=== PATIENT | female | born 1940 | race Caucasian/White ===

== ENCOUNTER 2024-08-25 07:48 | Inpatient (IN) ==
--- NOTE | 2024-08-25 08:14 | Emergency Department Note ---
ED Provider Note History of Present Illness Chief Complaint: Abdominal Pain Stated Complaint: SEVERE ABD PAIN Time Seen by Provider: 08/25/24 07:55 84-year-old female who presents to the emergency department with her (who also provides history) for evaluation of abdominal pain radiating into the back, as well as intermittent nausea and vomiting. The patient reports that the pain started yesterday afternoon. She reports that it is a constant pain with occasional sharp jabs. The patient reports that she has not had any good bowel movements within the past few weeks. She does report a history of "microcolitis". When asked if she uses any stool softeners, the patient reports that she is afraid to do so because often times she will have to deal with ongoing diarrhea. The patient has not had any fever or chills. She denies any urinary symptoms. The patient reports that she was recently diagnosed with an L1 fracture, but reports that this pain is different. She currently rates her discomfort a 9 out of 10. Home Medications Medication Instructions Recorded Confirmed Type magnesium 250 mg tablet 250 mg PO QAM 07/11/23 08/25/24 History mecobalamin (vitamin B12) 500 mcg 500 mcg PO QAM 07/11/23 08/25/24 History chewable tablet multivitamin 1 tab PO QAM 07/11/23 08/25/24 History brinzolamide 1 % eye 1 drp ophthalmic (eye) BID 10/03/23 08/25/24 History drops,suspension (Azopt) latanoprost 0.005 % eye drops 1 drp ophthalmic (eye) HS 10/03/23 08/25/24 History loperamide 2 mg capsule 2 mg PO Q6H PRN Diarrhea 11/15/23 08/25/24 History gabapentin 600 mg tablet 600 mg PO QPM #90 tabs 03/18/24 08/25/24 Rx gabapentin 300 mg capsule 600 mg (2 x 300 mg) PO QAM #180 06/10/24 08/25/24 Rx caps sertraline 50 mg tablet 100 mg PO QAM 06/24/24 08/25/24 History buspirone 10 mg tablet 10 mg PO BID #180 tabs 06/30/24 08/25/24 Rx aspirin 81 mg tablet 81 mg PO QAM 08/04/24 08/25/24 History calcium 600 mg (as 1 tab PO BID 08/04/24 08/25/24 History carbonate)-vitamin D3 10 mcg (400 unit) tablet (Calcium 600 + D(3)) losartan 25 mg tablet 25 mg PO QAM 08/04/24 08/25/24 History tamsulosin 0.4 mg capsule 0.4 mg PO HS 08/04/24 08/25/24 History turmeric root extract 500 mg tablet 500 mg PO BID 08/04/24 08/25/24 History oxycodone-acetaminophen 2.5 mg-325 1 tab PO Q8H PRN pain #20 tabs 08/08/24 08/25/24 Rx mg tablet Allergies Allergy/AdvReac Type Severity Reaction Status Date / Time No Known Allergies Allergy Verified 08/25/24 09:53 Past Med/Surg History Problem List (Updated 08/25/24 @ 13:51 by Adam Cummings) Urinary retention (Acute) Left inguinal hernia (Acute) Small bowel obstruction (Acute) Abdominal pain (Acute) SBO (small bowel obstruction) Reducible left inguinal hernia Encounter for pre-operative examination Back pain (Acute) Oropharyngeal dysphagia Aspiration into airway Asymmetric SNHL (sensorineural hearing loss) Ear canal abrasion Dysphagia Bronchiectasis Emphysema lung COPD (chronic obstructive pulmonary disease) Abnormal CT scan of lung Chronic cough Renal cyst (Chronic) Cough Incomplete bladder emptying (Chronic) Former smoker Trigeminal nerve disorder Right knee pain Glaucoma Neuropathy Anxiety and depression Microscopic colitis Chronic diarrhea CIDP (chronic inflammatory demyelinating polyneuropathy) HTN (hypertension) Medical History Dysphagia Aspiration into airway History of Clostridioides difficile colitis Self-catheterizes urinary bladder hx--pt states stopped self cathing 9 months ago--taking tamulosin and doing well History of colon polyps x1 small History of skin cancer multiple removed. ANDREAFSKI (hard of hearing) Abnormal brain CT "a lot of white stuff" - 2022. Told to take baby aspirin and is high risk for stroke. Anxiety Surgical History History of biopsy tongue History of colonoscopy Family History Grandmother (Maternal) Breast cancer Sister Diabetes Breast cancer Colorectal cancer Mother Diabetes Heart disease Myocardial infarction Colorectal cancer Hypertension Father Heart disease Hypertension Brother Prostate cancer Hypertension Sister Hypertension Other No family history of adverse response to anesthesia Denies family history of Ovarian cancer Kidney disease Lung cancer COPD (chronic obstructive pulmonary disease) Stroke Social History Smoking Status: Former smoker Tobacco Type: Cigarettes Age Started Using Tobacco: 16; Age Quit Using Tobacco: 68; packs per day: 1; Second Hand Exposure: No; Do You Dip or Chew Tobacco: No; Hx Alcohol Use: No Hx Substance Use: No Preferred Language: Scottish Communication Ability: Effective Revenue Officer Required: No Beliefs That Will Affect Care: None marital status: Current Living Situation: Spouse current occupational status: retired How many Children do You have: 0 Feels Safe at Home: Yes Safety Concerns: Feels Safe At This Time Diet: regular caffeine: Yes Dental Care, Regularly: Yes Seatbelt Use: always Assistive Devices: Cane, Denture - Upper, Denture - Lower and Glasses Physical Exam Vital Signs Vital Signs - 24 hr 08/25/24 07:51 08/25/24 08:01 08/25/24 08:10 Temperature 37.2 C Temperature Source Temporal Artery Scan Pulse Rate 61 61 Pulse Rate from SpO2 Sensor Pulse Rhythm Regular Respiratory Rate 18 18 Blood Pressure 154/74 H 148/68 H Blood Pressure Mean 100 94 Pulse Oximetry 95 95 Oxygen Delivery Method Room Air Room Air Oxygen Flow Rate Sepsis Recent Fever Within 48 Hours No Sepsis New/Unexplained Change in Mental Status N/A Sepsis Action Taken by Nursing No Action Required 08/25/24 08:20 08/25/24 08:30 08/25/24 09:00 Temperature Temperature Source Pulse Rate 52 L 48 L 48 L Pulse Rate from SpO2 Sensor 49 L 48 L Pulse Rhythm Respiratory Rate 19 21 Blood Pressure 136/59 L 127/53 L Blood Pressure Mean 84 77 Pulse Oximetry 89 L 100 Oxygen Delivery Method Oxygen Flow Rate Sepsis Recent Fever Within 48 Hours Sepsis New/Unexplained Change in Mental Status Sepsis Action Taken by Nursing 08/25/24 09:00 08/25/24 09:24 08/25/24 09:33 Temperature Temperature Source Pulse Rate 51 L 50 L Pulse Rate from SpO2 Sensor 50 L 50 L Pulse Rhythm Respiratory Rate 19 18 Blood Pressure 127/53 L 125/61 Blood Pressure Mean 90 82 Pulse Oximetry 98 100 Oxygen Delivery Method Oxygen Flow Rate Sepsis Recent Fever Within 48 Hours Sepsis New/Unexplained Change in Mental Status Sepsis Action Taken by Nursing 08/25/24 10:00 08/25/24 10:30 08/25/24 11:00 Temperature Temperature Source Pulse Rate 53 L 49 L 48 L Pulse Rate from SpO2 Sensor 53 L 49 L 48 L Pulse Rhythm Respiratory Rate 20 17 20 Blood Pressure 146/60 H 116/56 L Blood Pressure Mean 91 76 Pulse Oximetry 93 98 99 Oxygen Delivery Method Nasal Cannula Oxygen Flow Rate 2 Sepsis Recent Fever Within 48 Hours Sepsis New/Unexplained Change in Mental Status Sepsis Action Taken by Nursing 08/25/24 11:30 Temperature Temperature Source Pulse Rate 47 L Pulse Rate from SpO2 Sensor 47 L Pulse Rhythm Respiratory Rate 17 Blood Pressure 114/49 L Blood Pressure Mean 70 Pulse Oximetry 100 Oxygen Delivery Method Oxygen Flow Rate Sepsis Recent Fever Within 48 Hours Sepsis New/Unexplained Change in Mental Status Sepsis Action Taken by Nursing CONSTITUTIONAL: Healthy and well nourished. Patient appears in moderate discomfort. HEENT: Normocephalic, atraumatic. Pupils equal, round and reactive. Mucous membranes are dry. No scleral icterus or conjunctival injection. LYMPHATICS: No cervical chain adenopathy. RESPIRATORY: Clear to auscultation bilaterally with no wheezing, crackles, rhonchi or stridor. CARDIOVASCULAR: Regular rate and rhythm with no murmurs, rubs or gallops. GASTROINTESTINAL: Bowel sounds present in all quadrants. Patient has generalized abdominal tenderness to palpation without rigidity, guarding or rebound. Negative McBurney's point tenderness and CVA tenderness. MUSCULOSKELETAL: Mild tenderness to palpation through the L1 and L2 region. No tenderness to palpation through the paraspinous muscles. INTEGUMENTARY: No rash or other significant dermatologic conditions noted. HEMATOLOGIC: No ecchymosis or petechiae. PSYCHIATRIC: Positive affect. NEUROLOGIC: No focal neurologic deficits noted. Course Course Patient history and physical exam were performed. Nursing notes were reviewed. Vital signs were reviewed, showing an elevated blood pressure and mild bradycardia. Patient is not febrile or hypoxic. I did review prior medical records, showing that the patient did have x-rays of her lumbar spine, pelvis and hips 3 weeks ago, showing a questionable L1 superior endplate fracture. Patient also had an EGD performed 3 weeks ago for dysphagia, with no concerning findings. IV access was established, and labs were ordered and drawn. The patient was hydrated with a normal saline 500 cc bolus, and administered IV morphine and Zofran for pain and nausea. I also queried the [place] [facility] Prescription Program, showing the patient did receive a prescription for hydrocodone recently, assuming that that was prescribed for her back pain. Review of labs shows a normal white count and mildly elevated absolute neutrophil count. CMP shows an elevated glucose, otherwise remaining electrolytes and lipase are normal. Troponin was also normal. An ECG shows a sinus bradycardia [address] elevations or other ischemic changes. The patient was placed on community development specialist while in the emergency department. CT of the lumbar spine actually shows L1-L3 vertebral fractures. CT of the abdomen and pelvis shows notable bladder distention and small bowel obstruction, likely secondary to a left inguinal hernia. Findings were discussed with Dr. Quan, ED attending physician, who recommended placement of a Smith catheter. Findings were also discussed with the patient and . Dr. Quan did evaluate the patient, and was able to reduce the hernia. A Smith catheter was inserted secondary to bladder distention. I also discussed the case with general surgery (Radhika Talavera) who requested hospitalist admission, and they would reevaluate the patient. The patient and were in agreement with this plan as well. I then further discussed the case with our Food Service Helper,, and further discussed the case with the [facility] hospitalist service. Please see hospitalist and surgical dictations for further treatment and final disposition. The patient did report good pain and nausea control while under our service in the emergency department. Administered Medications Lactated Ringer's (Lr) 1,000 mls @ 100 mls/hr IV .Q10H TAYLA Stop: 08/26/24 07:44 Last Admin: 08/25/24 13:13 Dose: 100 mls/hr Documented By: OLENA Discontinued Medications Sodium Chloride (Nss) 500 mls @ 999 mls/hr IV .Q31M STA Stop: 08/25/24 08:39 Last Infusion: 08/25/24 08:50 Dose: Infused Documented By: Admin: 08/25/24 08:18 Dose: 999 mls/hr Documented By: CELINE Ioversol (Optiray 320 100ml) 94 ml IV ONCE ONE Stop: 08/25/24 09:10 Last Admin: 08/25/24 09:12 Dose: 94 ml Documented By: BRM Morphine Sulfate (Morphine Sulfate 4 Mg/Ml 1 Ml Carp\\Vial) 4 mg IV NOW STA Stop: 08/25/24 08:10 Last Admin: 08/25/24 08:18 Dose: 4 mg Documented By: CELINE Ondansetron HCl (Ondansetron Inj 2 Mg/Ml 2 Ml Vial) 4 mg IV NOW STA Stop: 08/25/24 08:10 Last Admin: 08/25/24 08:18 Dose: 4 mg Documented By: CELINE Medical Decision Making Medical Records Attestation: I reviewed the patient's medical records. Home Medications was personally reviewed by me Laboratory Data Attestation: I reviewed the patient's lab results. 08/25/24 08:10 08/25/24 08:10 Lab Results 08/25/24 08/25/24 Range/Units 08:10 09:45 WBC 8.64 (4.8-10.8) K/ul RBC 4.10 L (4.20-5.40) M/uL Hgb 12.6 (12.0-16.0) g/dl Hct 37.6 (37.0-47.0) % MCV 91.7 (80.0-100.0) fL MCH 30.7 (25.0-34.0) pg MCHC 33.5 (32.0-36.0) g/dL RDW Std Deviation 41.6 (36.4-46.3) fL RDW Coeff of Beto 12.5 (11.5-14.5) % Plt Count 244 (130-400) K/uL MPV 9.2 L (9.4-12.4) fL Immature Gran % (Auto) 0.3 % Neut % (Auto) 84.3 % Lymph % (Auto) 8.4 % Cloud % (Auto) 6.9 % Eos % (Auto) 0.0 % Baso % (Auto) 0.1 % Neut # (Auto) 7.27 H (1.40-6.50) K/uL Lymph # (Auto) 0.73 L (1.20-3.40) K/uL Cloud # (Auto) 0.60 H (0.11-0.59) K/uL Eos # (Auto) 0.00 (0.00-0.50) K/uL Baso # (Auto) 0.01 (0.00-0.20) K/uL Immature Gran # (Auto) 0.03 (0.01-0.20) K/uL Sodium 141 (136-145) mmol/L Potassium 3.9 (3.5-5.1) mmol/L Chloride 104 (98-107) mmol/L Carbon Dioxide 28 (21-32) mmol/L Anion Gap 9 (3-11) BUN 20 (6-23) mg/dl Creatinine 0.74 (0.6-1.2) mg/dl Est Cr Clr Drug Dosing Not Reportable eGFR 78.74 BUN/Creatinine Ratio 27.0 H (10-20) Glucose 136 H (70-99(Fasting)) mg/dl Calcium 9.6 (8.6-10.3) mg/dl Total Bilirubin 0.6 (0.2-1.0) mg/dl AST 21 (13-39) U/L ALT 13 (7-52) U/L Alkaline Phosphatase 86 (34-104) U/L Troponin I High Sens 12.0 (0-14) pg/ml Total Protein 7.3 (6.0-8.3) gm/dl Albumin 4.2 (3.4-5.0) gm/dl Globulin 3.1 (2.5-4.0) gm/dl Albumin/Globulin Ratio 1.4 (0.9-2) Lipase 5 L (11-82) U/L Urine Color Yellow Urine Appearance Clear (Clear) Urine pH 6.0 (4.5-7.5) Ur Specific [place] 1.026 (1.000-1.030) Urine Protein Negative (Negative) Urine Glucose (UA) Negative (Negative) Urine Ketones 1+ H (Negative) Urine Blood Negative (Negative) Urine Nitrite Negative (Negative) Urine Bilirubin Negative (Negative) Urine Urobilinogen Negative (Negative) Ur Leukocyte Esterase 2+ H (Negative) Urine WBC (Auto) 11-20 H (0-5) /hpf Urine RBC (Auto) 3-5 H (0-2) /hpf U Hyaline Cast (Auto) 0-2 (0-2) /lpf U Epithel Cells (Auto) 0-2 (0-2) /hpf Urine Bacteria (Auto) 4+ H (None Seen) Urine Comment Imaging Data Attestation: I personally reviewed and interpreted this imaging study as follows: My Impression: My interpretation of the lumbar spine CT shows fractures of L1-L3. My interpretation of CT with IV contrast of the abdomen pelvis shows bladder distention shows a small bowel obstruction, with the radiologist making mention of left inguinal hernia with transition point, indicating hernia as the source for the obstruction. No diverticulitis, appendicitis or evidence of bowel perforation. Radiologist reports were otherwise reviewed with concurrence. Radiologist's Impression: Abdomen/Pelvis CT 08/25/24 08:10 CT SCAN OF THE ABDOMEN AND PELVIS WITH IV CONTRAST CLINICAL HISTORY: Fall. Low back pain. COMPARISON STUDY: Abdominal CT dated 12/10/2023. TECHNIQUE: Following the IV administration of 94 cc of Optiray 320, CT scan of the abdomen and pelvis is performed from the lung bases to the proximal femora. Images are reviewed in the axial, sagittal, and coronal planes. IV contrast was administered without complication. A dose lowering technique was utilized adhering to the principles of ALARA. CT DOSE: 475.02 mGy.cm FINDINGS: Lung bases: The heart is enlarged noting trace pericardial effusion. Scattered calcified granulomas are observed. There are trace pleural effusions with dependent atelectasis. Liver: The contrast-enhanced liver is normal in size, contour, and attenuation. There is no intrahepatic biliary ductal dilatation. The hepatic veins and portal veins are patent. Gallbladder: Distended but otherwise normal as imaged. Spleen: Normal in size and attenuation. Pancreas: Unremarkable. Adrenal glands: Unremarkable. Kidneys: The contrast enhanced kidneys are normal in size and without hydronephrosis. The kidneys enhance symmetrically. Scattered subcentimeter cortical hypodensities likely represent cysts but are too small for definitive characterization. Renal sinus cysts are noted on the left. Abdominal vasculature: The abdominal aorta is normal in course and caliber noting moderate to advanced atherosclerotic calcification. Bowel: The small bowel loops are distended and fluid-filled with numerous air- fluid levels. Small bowel loops measure up to 2.6 cm diameter, an appearance is consistent with a small bowel obstruction. A small bowel loops contained within a left inguinal hernia, and this represents a transition point. The distal small bowel and colon is decompressed. No pneumatosis intestinalis or portal venous gas is seen. There is moderate diverticulosis of the sigmoid colon without CT evidence of acute diverticulitis. The appendix is well-visualized and normal. Peritoneum: No intraperitoneal free air is identified. There is a small volume of abdominopelvic ascites. Lymphadenopathy: None. Pelvic viscera: The bladder is distended but otherwise normal as imaged. There are uterine fibroids. No adnexal lesion is seen. A left groin hernia contains fluid and a segment of small bowel. Skeletal structures: The skeletal structures are osteopenic. There is a chronic compression deformity of L1. There are superior end plate compression deformities of L2 and L3 which are new from 12/10/2023. The L2 fracture appears acute with mild to moderate loss of height. No retropulsion of fragments is seen. There is mild loss of height at L3 and this may also be acute subacute. There is moderate lumbosacral spondylosis. Bilateral pars defects are noted at L5 with minimal anterolisthesis at L5-S1. Sclerotic change is noted in the sacroiliac joints and pubic symphysis. No lytic or blastic lesions are seen. IMPRESSION: 1. There is a small bowel obstruction. A segment of small bowel is contained within a left inguinal hernia and this represents the transition point. 2. There is no pneumatosis intestinalis or portal venous gas. No intraperitoneal free air is seen. 3. Small volume abdominopelvic ascites. 4. There are superior endplate compression deformities of L2 and L3. These are new from 12/10/2023, and the L2 compression fracture appears acute. The L3 fracture may also be acute to subacute. There is no significant retropulsion of fragments. 5. The bladder and gallbladder are distended but otherwise normal as imaged. 6. Cardiomegaly and trace pleural effusions. 7. Additional findings as above. ACT 112: Negative or not required by law. Electronically signed by: Shant Middleton M.D. 08/25/2024 10:[address] 08/25/24 08:14 CT lumbar spine w con CLINICAL HISTORY: Questionable L1 fx, ack pain COMPARISON STUDY: 12/10/2023 FINDINGS: There is osteopenia. There is stable grade 1 anterolisthesis of L5 on S1 with stable pars defects. There is moderate diffuse degenerative disc disease and lower lumbar facet degeneration. There is moderate neural foraminal narrowing at L4-5 and L5-S1. No severe central canal narrowing seen. There is stable moderate height loss at the L1 vertebral body. There are interval mild vertebral body compression fractures at the superior endplates of L2 and L3. No other lumbar spine fracture seen. IMPRESSION: Interval mild vertebral body compression fractures at L2 and L3. ACT 112: Negative or not required by law. Electronically signed by: Steve Packer M.D. 08/25/2024 9:29 AM ECG Data Attestation: I personally reviewed and interpreted this ECG as follows: Indication: + abdominal pain, + back/shoulder pain, + nausea and + vomiting Rate (beats per minute): 50 Rhythm: + sinus bradycardia ECG Intervals/blocks: + Normal QRS, + Normal QT and + Normal DC ECG [place]: + Normal ECG ST segments: + Normal ST segments Comparison ECG Date: from (10/18/2022) Change: no significant change MDM Narrative Cardiac monitoring: An order was placed for continuous cardiac monitoring. The monitor shows a rate of 50 bpm with a sinus bradycardic rhythm. 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 See ED Course section for further details of today's visit. The patient presents with complaint of abdominal pain, nausea and vomiting since yesterday. Today's workup does show evidence for a small bowel obstruction likely secondary to a left inguinal hernia. The patient also has notable urinary retention, likely secondary to the obstruction. A Smith catheter was inserted with good additional relief of discomfort. Laboratory studies were reviewed without any concerning findings. I do not suspect intra-abdominal infection. CT imaging also does not show evidence for diverticulitis, appendicitis or other concerning findings. Laboratory studies also are not suggestive of pancreatitis, cholecystitis or hepatitis. ECG does not show any concerning acute cardiac etiologies. Troponin was also normal. The patient's left inguinal hernia was successfully reduced by Dr. Quan, attending physician, and the patient will be admitted by the hospitalist service, with further surgical evaluation by general surgery. Dr. Quan otherwise agrees with workup provided today, and plan for admission. Impression Small bowel obstruction, Left inguinal hernia, Urinary retention Discharge Plan Visit Data Chief Complaint: Abdominal Pain Stated Complaint: SEVERE ABD PAIN ED Provider: John Quan ED Midlevel Provider: Adam Cummings Discharge Problem: Small bowel obstruction, Left inguinal hernia, Urinary retention Patient Disposition: Admitted As Inpatient Condition: Fair Discharge Instructions Interventions: ED Discharge Assessment Last Done: 08/25/24 14:22 ED DC CONDITION Conditon at Discharge Condition at Discharge: Fair
[2024-08-25] MEDS: ONDANSETRON INJ 2 MG/ML 2 ML VIAL IV STA (08:18)
[2024-08-25] MEDS: SODIUM CHLORIDE 0.9% 500 ML IV STA (08:18)
[2024-08-25] MEDS: MoRPHine SULFATE 4 MG/ML 1 ML CARP\\VIAL IV STA (08:18)
[2024-08-25 08:32] LABS: Hematocrit (blood only) 37.6 % (37.0-47.0); Hemoglobin 12.6 g/dl (12.0-16.0); Immature Granulocytes # (auto) 0.03 K/uL (0.01-0.20); Immature Granulocytes % (auto) 0.3 %; Mean Corpuscular Hemoglobin 30.7 pg (25.0-34.0); Mean Corpuscular Volume 91.7 fL (80.0-100.0); Platelet Count 244 K/uL (130-400); RDW Standard Deviation 41.6 fL (36.4-46.3); Red Blood Count 4.10 M/uL (4.20-5.40); White Blood Count 8.64 K/ul (4.8-10.8)
--- NOTE | 2024-08-25 08:39 | Emergency Department Note ---
ED Visit Note I was consulted by the Advanced Practice Provider, Adam Cummings PA-C. I personally made/approved the management plan and take responsibility for the patient management. I performed a substantive portion of the visit. This includes the aspects of: -History/Physical/Personally seeing the patient -MDM .
[2024-08-25 08:50] LABS: Alanine Aminotransferase 13 U/L (7-52); Albumin Globulin Ratio 1.4 (0.9-2); Alkaline Phosphatase 86 U/L (34-104); Anion Gap 9 (3-11); Bilirubin,Total 0.6 mg/dl (0.2-1.0); Blood Urea Nitrogen 20 mg/dl (6-23); Calcium 9.6 mg/dl (8.6-10.3); Carbon Dioxide 28 mmol/L (21-32); Chloride 104 mmol/L (98-107); Globulin 3.1 gm/dl (2.5-4.0); Glucose 136 mg/dl (70-99(Fasting)); Lipase 5 U/L (11-82); Potassium 3.9 mmol/L (3.5-5.1); Sodium 141 mmol/L (136-145); Total Protein 7.3 gm/dl (6.0-8.3)
[2024-08-25] MEDS: OPTIRAY 320 100ml IV ONE (09:12)
--- NOTE | 2024-08-25 09:31 | CT Scan Report ---
CT lumbar spine w con CLINICAL HISTORY: Questionable L1 fx, ack pain COMPARISON STUDY: 12/10/2023 FINDINGS: There is osteopenia. There is stable grade 1 anterolisthesis of L5 on S1 with stable pars d efects. There is moderate diffuse degenerative disc disease and lower lumbar facet degeneration. Ther e is moderate neural foraminal narrowing at L4-5 and L5-S1. No severe central canal narrowing seen. T here is stable moderate height loss at the L1 vertebral body. There are interval mild vertebral body compression fractures at the superior endplates of L2 and L3. No other lumbar spine fracture seen. IMPRESSION: Interval mild vertebral body compression fractures at L2 and L3. ACT 112: Negative or not required by law. Electronically signed by: Steve Packer M.D. 08/25/2024 9:29 AM
[2024-08-25 10:20] LABS: Appearance Urine Clear (Clear); Bacteria Urine Automated 4+ (None Seen); Cast Urine Automated 0-2 /lpf (0-2); Epithelial Cell Urine Auto 0-2 /hpf (0-2); Glucose Urine UA Negative (Negative)
--- NOTE | 2024-08-25 10:20 | CT Scan Report ---
CT SCAN OF THE ABDOMEN AND PELVIS WITH IV CONTRAST CLINICAL HISTORY: Fall. Low back pain. COMPARISON STUDY: Abdominal CT dated 12/10/2023. TECHNIQUE: Following the IV administration of 94 cc of Optiray 320, CT scan of the abdomen and pelvi s is performed from the lung bases to the proximal femora. Images are reviewed in the axial, sagittal , and coronal planes. IV contrast was administered without complication. A dose lowering technique wa s utilized adhering to the principles of ALARA. CT DOSE: 475.02 mGy.cm FINDINGS: Lung bases: The heart is enlarged noting trace pericardial effusion. Scattered calcified granulomas a re observed. There are trace pleural effusions with dependent atelectasis. Liver: The contrast-enhanced liver is normal in size, contour, and attenuation. There is no intrahepa tic biliary ductal dilatation. The hepatic veins and portal veins are patent. Gallbladder: Distended but otherwise normal as imaged. Spleen: Normal in size and attenuation. Pancreas: Unremarkable. Adrenal glands: Unremarkable. Kidneys: The contrast enhanced kidneys are normal in size and without hydronephrosis. The kidneys enh ance symmetrically. Scattered subcentimeter cortical hypodensities likely represent cysts but are too small for definitive characterization. Renal sinus cysts are noted on the left. Abdominal vasculature: The abdominal aorta is normal in course and caliber noting moderate to advance d atherosclerotic calcification. Bowel: The small bowel loops are distended and fluid-filled with numerous air-fluid levels. Small bow el loops measure up to 2.6 cm diameter, an appearance is consistent with a small bowel obstruction. A small bowel loops contained within a left inguinal hernia, and this represents a transition point. T he distal small bowel and colon is decompressed. No pneumatosis intestinalis or portal venous gas is seen. There is moderate diverticulosis of the sigmoid colon without CT evidence of acute diverticulit is. The appendix is well-visualized and normal. Peritoneum: No intraperitoneal free air is identified. There is a small volume of abdominopelvic asci александр. Lymphadenopathy: None. Pelvic viscera: The bladder is distended but otherwise normal as imaged. There are uterine fibroids. No adnexal lesion is seen. A left groin hernia contains fluid and a segment of small bowel. Skeletal structures: The skeletal structures are osteopenic. There is a chronic compression deformity of L1. There are superior end plate compression deformities of L2 and L3 which are new from 12/10/19 24. The L2 fracture appears acute with mild to moderate loss of height. No retropulsion of fragments is seen. There is mild loss of height at L3 and this may also be acute subacute. There is moderate amrik mbosacral spondylosis. Bilateral pars defects are noted at L5 with minimal anterolisthesis at L5-S1. Sclerotic change is noted in the sacroiliac joints and pubic symphysis. No lytic or blastic lesions a re seen. IMPRESSION: 1. There is a small bowel obstruction. A segment of small bowel is contained within a left inguinal h ernia and this represents the transition point. 2. There is no pneumatosis intestinalis or portal venous gas. No intraperitoneal free air is seen. 3. Small volume abdominopelvic ascites. 4. There are superior endplate compression deformities of L2 and L3. These are new from 12/10/2023, a nd the L2 compression fracture appears acute. The L3 fracture may also be acute to subacute. There is no significant retropulsion of fragments. 5. The bladder and gallbladder are distended but otherwise normal as imaged. 6. Cardiomegaly and trace pleural effusions. 7. Additional findings as above. ACT 112: Negative or not required by law. Electronically signed by: Shant Middleton M.D. 08/25/2024 10:18 AM
[2024-08-25] MEDS ORDERED: ONDANSETRON INJ 2 MG/ML 2 ML VIAL IV PRN (11:33)
--- NOTE | 2024-08-25 12:01 | Surgery Consultation ---
<Statement entered by Glenda Rosario, - 08/25/24 17:11> Plan for left inguinal hernia repair tomorrow Date of Consultation August 25, 2024 Assessment & Plan (1) Reducible left inguinal hernia: This is an 84yF with a PMH of COPD, SNHL, incomplete bladder emptying, CIPD, HTN, anxiety/depression who presents to the [facility] ED on 08/25/24 with complaints of abdominal pain with nausea/vomiting. Patient reports her symptoms started yesterday and worsened into the evening. She presented to the ER today for evaluation. A CT a/p was obtained that revealed a small bowel obstruction. A segment of small bowel is contained within a left inguinal hernia and this represents the transition point. Patient denies any specific pain or bulging at her groin and was never aware of a possible hernia. She denies any previous abdominal surgical history. In the ER the physician was able to reduce it. She does feel improved since reduction. A jenkins was placed for urinary retention as well. She denies any CP/SOB. She reports a few years of constipation. Passed some small bits of stool yesterday and is passing small amounts of gas. In the ER patient's vitals are stable. Blood work shows WBC 8, Hbg 12, Cr 0.7. On exam abdomen is soft and non distended. She is not overly tender outside of some mild discomfort off to the left midline. Left groin hernia appears to be reduced. There is no bulging or tenderness. In terms of surgical planning we would prefer a robotic/laparoscopic approach if possible. Appears the schedule is able to accommodate this for us tomorrow in the afternoon. Would keep patient NPO at midnight and we will proceed with robotic repair of left inguinal hernia tomorrow with mesh with Dr. Rosario. Appreciate the hospitalist team's assistance with the patient. (2) SBO (small bowel obstruction): History of Present Illness History of Present Illness This is an 84yF with a PMH of COPD, SNHL, incomplete bladder emptying, CIPD, HTN, anxiety/depression who presents to the [facility] ED on 08/25/24 with complaints of abdominal pain with nausea/vomiting. Patient reports her symptoms started yesterday and worsened into the evening. She presented to the ER today for evaluation. A CT a/p was obtained that revealed a small bowel obstruction. A segment of small bowel is contained within a left inguinal hernia and this represents the transition point. Patient denies any specific pain or bulging at her groin and was never aware of a possible hernia. She denies any previous abdominal surgical history. In the ER the physician was able to reduce it. She does feel improved since reduction. A jenkins was placed for urinary retention as well. She denies any CP/SOB. She reports a few years of constipation. Passed some small bits of stool yesterday and is passing small amounts of gas. Allergies Allergy/AdvReac Type Severity Reaction Status Date / Time No Known Allergies Allergy Verified 08/25/24 09:53 Home Medications Medication Instructions Recorded Confirmed Type magnesium 250 mg tablet 250 mg PO QA 07/11/23 08/25/24 History mecobalamin (vitamin B12) 500 mcg 500 mcg PO QAM 07/11/23 08/25/24 History chewable tablet multivitamin 1 tab PO QA 07/11/23 08/25/24 History brinzolamide 1 % eye 1 drp ophthalmic (eye) BID 10/03/23 08/25/24 History drops,suspension (Azopt) latanoprost 0.005 % eye drops 1 drp ophthalmic (eye) HS 10/03/23 08/25/24 History loperamide 2 mg capsule 2 mg PO Q6H PRN Diarrhea 11/15/23 08/25/24 History gabapentin 600 mg tablet 600 mg PO QPM #90 tabs 03/18/24 08/25/24 Rx gabapentin 300 mg capsule 600 mg (2 x 300 mg) PO QA #180 06/10/24 08/25/24 Rx caps sertraline 50 mg tablet 100 mg PO [facility] 06/24/24 08/25/24 History buspirone 10 mg tablet 10 mg PO BID #180 tabs 06/30/24 08/25/24 Rx aspirin 81 mg tablet 81 mg PO QA 08/04/24 08/25/24 History calcium 600 mg (as 1 tab PO BID 08/04/24 08/25/24 History carbonate)-vitamin D3 10 mcg (400 unit) tablet (Calcium 600 + D(3)) losartan 25 mg tablet 25 mg PO QA 08/04/24 08/25/24 History tamsulosin 0.4 mg capsule 0.4 mg PO 08/04/24 08/25/24 History turmeric root extract 500 mg tablet 500 mg PO BID 08/04/24 08/25/24 History oxycodone-acetaminophen 2.5 mg-325 1 tab PO Q8H PRN pain #20 tabs 08/08/24 08/25/24 Rx mg tablet Patient History Medical History Dysphagia Aspiration into airway History of Clostridioides difficile colitis Self-catheterizes urinary bladder hx--pt states stopped self cathing 9 months ago--taking tamulosin and doing well History of colon polyps x1 small History of skin cancer multiple removed. [place] (hard of hearing) Abnormal brain CT "a lot of white stuff" - 2022. Told to take baby aspirin and is high risk for stroke. Anxiety Surgical History History of biopsy tongue History of colonoscopy Family History Grandmother (Maternal) Breast cancer Sister Diabetes Breast cancer Colorectal cancer Mother Diabetes Heart disease Myocardial infarction Colorectal cancer Hypertension Father Heart disease Hypertension Brother Prostate cancer Hypertension Sister Hypertension Other No family history of adverse response to anesthesia Denies family history of Ovarian cancer Kidney disease Lung cancer COPD (chronic obstructive pulmonary disease) Stroke Social History Smoking Status: Former smoker Tobacco Type: Cigarettes Age Started Using Tobacco: 16; Age Quit Using Tobacco: 68; packs per day: 1; Second Hand Exposure: No; Do You Dip or Chew Tobacco: No; Hx Alcohol Use: No Hx Substance Use: No Preferred Language: Bolivian Communication Ability: Effective Energy Risk Management Analyst Required: No Beliefs That Will Affect Care: None marital status: Current Living Situation: Spouse current occupational status: retired How many Children do You have: 0 Feels Safe at Home: Yes Diet: regular caffeine: Yes Dental Care, Regularly: Yes Seatbelt Use: always Assistive Devices: Cane, Denture - Upper, Denture - Lower and Glasses Review of Systems Constitutional: no fever and no chills Respiratory: no dyspnea Cardiovascular: no chest pain Gastrointestinal: + abdominal pain, + nausea, + vomiting a nd + constipation Physical Exam Physical Exam: awake/alert, no distress Respiratory: normal respiratory effort on supplemental O2 Gastrointestinal (Abdomen): Inspection/Auscultation: abdomen not distended Percussion/Palpation: + abdomen tender (very mild discomfort off to left midline, no groin discomfort b/l) and abdomen soft L groin hernia appears to be reduced without any obvious bulging or tenderness in the region Results & Data Vital Signs (Past 12 Hours) Vital Signs Temp Pulse Resp BP Pulse Ox O2 Del Method O2 Flow Rate 08/25/24 11:00 48 L 20 116/56 L 99 Nasal Cannula 2 08/25/24 10:30 49 L 17 98 08/25/24 10:00 53 L 20 146/60 H 93 08/25/24 09:33 50 L 18 125/61 100 08/25/24 09:24 51 L 19 98 08/25/24 09:00 127/53 L 08/25/24 09:00 48 L 21 127/53 L 100 08/25/24 08:30 48 L 19 136/59 L 89 L 08/25/24 08:20 52 L 08/25/24 08:10 61 18 95 Room Air 08/25/24 08:01 148/68 H 08/25/24 07:51 99.0 F 61 18 154/74 H 95 Room Air Diagnostic Findings CT SCAN OF THE ABDOMEN AND PELVIS WITH IV CONTRAST CLINICAL HISTORY: Fall. Low back pain. COMPARISON STUDY: Abdominal CT dated 12/10/2023. TECHNIQUE: Following the IV administration of 94 cc of Optiray 320, CT scan of the abdomen and pelvis is performed from the lung bases to the proximal femora. Images are reviewed in the axial, sagittal, and coronal planes. IV contrast was administered without complication. A dose lowering technique was utilized adhering to the principles of ALARA. CT DOSE: 475.02 mGy.cm FINDINGS: Lung bases: The heart is enlarged noting trace pericardial effusion. Scattered calcified granulomas are observed. There are trace pleural effusions with dependent atelectasis. Liver: The contrast-enhanced liver is normal in size, contour, and attenuation. There is no intrahepatic biliary ductal dilatation. The hepatic veins and portal veins are patent. Gallbladder: Distended but otherwise normal as imaged. Spleen: Normal in size and attenuation. Pancreas: Unremarkable. Adrenal glands: Unremarkable. Kidneys: The contrast enhanced kidneys are normal in size and without hydronephrosis. The kidneys enhance symmetrically. Scattered subcentimeter cortical hypodensities likely represent cysts but are too small for definitive characterization. Renal sinus cysts are noted on the left. Abdominal vasculature: The abdominal aorta is normal in course and caliber noting moderate to advanced atherosclerotic calcification. Bowel: The small bowel loops are distended and fluid-filled with numerous air- fluid levels. Small bowel loops measure up to 2.6 cm diameter, an appearance is consistent with a small bowel obstruction. A small bowel loops contained within a left inguinal hernia, and this represents a transition point. The distal small bowel and colon is decompressed. No pneumatosis intestinalis or portal venous gas is seen. There is moderate diverticulosis of the sigmoid colon without CT evidence of acute diverticulitis. The appendix is well-visualized and normal. Peritoneum: No intraperitoneal free air is identified. There is a small volume of abdominopelvic ascites. Lymphadenopathy: None. Pelvic viscera: The bladder is distended but otherwise normal as imaged. There are uterine fibroids. No adnexal lesion is seen. A left groin hernia contains fluid and a segment of small bowel. Skeletal structures: The skeletal structures are osteopenic. There is a chronic compression deformity of L1. There are superior end plate compression deformities of L2 and L3 which are new from 12/10/2023. The L2 fracture appears acute with mild to moderate loss of height. No retropulsion of fragments is seen. There is mild loss of height at L3 and this may also be acute subacute. There is moderate lumbosacral spondylosis. Bilateral pars defects are noted at L5 with minimal anterolisthesis at L5-S1. Sclerotic change is noted in the sacroiliac joints and pubic symphysis. No lytic or blastic lesions are seen. IMPRESSION: 1. There is a small bowel obstruction. A segment of small bowel is contained within a left inguinal hernia and this represents the transition point. 2. There is no pneumatosis intestinalis or portal venous gas. No intraperitoneal free air is seen. 3. Small volume abdominopelvic ascites. 4. There are superior endplate compression deformities of L2 and L3. These are new from 12/10/2023, and the L2 compression fracture appears acute. The L3 fracture may also be acute to subacute. There is no significant retropulsion of fragments. 5. The bladder and gallbladder are distended but otherwise normal as imaged. 6. Cardiomegaly and trace pleural effusions. 7. Additional findings as above. ACT 112: Negative or not required by law. Electronically signed by: Shant Middleton M.D. 08/25/2024 10:18 AM PG Care Time/CCT Total # of Minutes Spent Total Time Spent with Patient: Total time spent is greater than 50% in coordination of care (as documented) at patient's floor/unit and/or counseling patient: Coding Level of Care Code 62436 INT INP/OBS CARE 2/55MIN Diagnoses Reducible left inguinal hernia K40.90 SBO (small bowel obstruction) K56.609
--- NOTE | 2024-08-25 13:06 | History & Physical Report ---
Date of Service August 25, 2024 Assessment & Plan (1) Abdominal pain: (2) SBO (small bowel obstruction): Plan Pt is a 84 yo female with hx of COPD, incomplete bladder emptying, microscopic colitis, chronic diarrhea, CIDP, HTN and anxiety/depression presenting with a 1 day history of generalized constant abdominal with 2 episodes of vomiting this morning. CT finding indicate a SBO caused by left inguinal hernia. Hernia was manual reduced in the ED. #SBO/ Left inguinal hernia CT abd. showed bladder distension and SBO from a left inguinal hernia which was manually reduced on admission. Pt's vitals have been stable, she is afebrile and WBC is WNL. Consult general surgery IV morphine given for pain control Start LR fluids NPO #Vertebral fracture CT spine showed compression L1-L3 fractures, likely due to osteoporosis Most recent DEXA scan was normal - likely low sensitivity. Recommend starting bisphosphonate 1 month after fracture heals #Urinary retention/UTI Smith catheter placed Urinalysis showed elevated leukocyte esterase, RBC, WBC and bacteria Asymptomatic - antibiotics not recommended Dispo: Med/surg Diet: NPO DVT prophylaxis: SCDs Code: Full History of Present Illness Chief Complaint: Abdominal pain Primary Care Provider: Ronda Mchugh DO HPI: Pt is a 84 yo female with hx of COPD, incomplete bladder emptying, microscopic colitis, chronic diarrhea, CIDP, HTN and anxiety/depression presenting with a 1 day history of generalized constant abdominal with 2 episodes of vomiting this morning. Reports a 1 year history of constipation and passes firm small balls once a day. She has a 2 year history of urinary retention where she was initially self catheterizing but is now on flomax due to recurrent UTIs. Most recent US for post void volume was <100mL. Pt also reported back pain due to a vertebral fracture after falling 3-4 weeks ago. Allergies Allergy/AdvReac Type Severity Reaction Status Date / Time No Known Allergies Allergy Verified 08/25/24 09:53 Home Medications Medication Instructions Recorded Confirmed Type magnesium 250 mg tablet 250 mg PO QAM 07/11/23 08/25/24 History mecobalamin (vitamin B12) 500 mcg 500 mcg PO QAM 07/11/23 08/25/24 History chewable tablet multivitamin 1 tab PO QAM 07/11/23 08/25/24 History brinzolamide 1 % eye 1 drp ophthalmic (eye) BID 10/03/23 08/25/24 History drops,suspension (Azopt) latanoprost 0.005 % eye drops 1 drp ophthalmic (eye) HS 10/03/23 08/25/24 History loperamide 2 mg capsule 2 mg PO Q6H PRN Diarrhea 11/15/23 08/25/24 History gabapentin 600 mg tablet 600 mg PO QPM #90 tabs 03/18/24 08/25/24 Rx gabapentin 300 mg capsule 600 mg (2 x 300 mg) PO QAM #180 06/10/24 08/25/24 Rx caps sertraline 50 mg tablet 100 mg PO QAM 06/24/24 08/25/24 History buspirone 10 mg tablet 10 mg PO BID #180 tabs 06/30/24 08/25/24 Rx aspirin 81 mg tablet 81 mg PO QAM 08/04/24 08/25/24 History calcium 600 mg (as 1 tab PO BID 08/04/24 08/25/24 History carbonate)-vitamin D3 10 mcg (400 unit) tablet (Calcium 600 + D(3)) losartan 25 mg tablet 25 mg PO QAM 08/04/24 08/25/24 History tamsulosin 0.4 mg capsule 0.4 mg PO HS 08/04/24 08/25/24 History turmeric root extract 500 mg tablet 500 mg PO BID 08/04/24 08/25/24 History oxycodone-acetaminophen 2.5 mg-325 1 tab PO Q8H PRN pain #20 tabs 08/08/24 08/25/24 Rx mg tablet Past Med/Surg History Problem List (Updated 08/25/24 @ 13:51 by Adam Cummings) Urinary retention (Acute) Left inguinal hernia (Acute) Small bowel obstruction (Acute) Abdominal pain (Acute) SBO (small bowel obstruction) Reducible left inguinal hernia Encounter for pre-operative examination Back pain (Acute) Oropharyngeal dysphagia Aspiration into airway Asymmetric SNHL (sensorineural hearing loss) Ear canal abrasion Dysphagia Bronchiectasis Emphysema lung COPD (chronic obstructive pulmonary disease) Abnormal CT scan of lung Chronic cough Renal cyst (Chronic) Cough Incomplete bladder emptying (Chronic) Former smoker Trigeminal nerve disorder Right knee pain Glaucoma Neuropathy Anxiety and depression Microscopic colitis Chronic diarrhea CIDP (chronic inflammatory demyelinating polyneuropathy) HTN (hypertension) Medical History Dysphagia Aspiration into airway History of Clostridioides difficile colitis Self-catheterizes urinary bladder hx--pt states stopped self cathing 9 months ago--taking tamulosin and doing well History of colon polyps x1 small History of skin cancer multiple removed. [place] (hard of hearing) Abnormal brain CT "a lot of white stuff" - 2022. Told to take baby aspirin and is high risk for stroke. Anxiety Surgical History History of biopsy tongue History of colonoscopy Family History Grandmother (Maternal) Breast cancer Sister Diabetes Breast cancer Colorectal cancer Mother Diabetes Heart disease Myocardial infarction Colorectal cancer Hypertension Father Heart disease Hypertension Brother Prostate cancer Hypertension Sister Hypertension Other No family history of adverse response to anesthesia Denies family history of Ovarian cancer Kidney disease Lung cancer COPD (chronic obstructive pulmonary disease) Stroke Social History Smoking Status: Former smoker Tobacco Type: Cigarettes Age Started Using Tobacco: 16; Age Quit Using Tobacco: 68; packs per day: 1; Second Hand Exposure: No; Do You Dip or Chew Tobacco: No; Hx Alcohol Use: No Hx Substance Use: No Preferred Language: Albanian Communication Ability: Effective Pain Management Physician Required: No Beliefs That Will Affect Care: None marital status: Current Living Situation: Spouse current occupational status: retired How many Children do You have: 0 Feels Safe at Home: Yes Safety Concerns: Feels Safe At This Time Diet: regular caffeine: Yes Dental Care, Regularly: Yes Seatbelt Use: always Assistive Devices: Cane Review of Systems Review of Systems: No fever, chills, chest pain, SOB, pain with urination, blood in urine or stool. Physical Exam Physical Exam: GEN: NAD, pt resting comfortably with at bed side HEENT: Pinpoint pupils, EOM intact, dry mucous membrane CV: Bradycardic, normal rhythm, S1/S2, no r/m/g, no carotid bruits Lungs: CTA b/l, no wheezing rales or rhonchi, symmetrical chest wall expansion Abd: Mild tenderness to palpation on the lower abd. No rebound tenderness or guarding, no hepatomegaly Back: no CVA tenderness b/l, no spinal or paraspinal tenderness on palpation Extremity: bruising on arms b/l, LE strength 4/5 b/l, no LE edema Results & Data Results & Data Vital Signs (Past 12 Hours) Vital Signs Temp Pulse Resp BP Pulse Ox O2 Del Method O2 Flow Rate 08/25/24 11:00 48 L 20 116/56 L 99 Nasal Cannula 2 08/25/24 10:30 49 L 17 98 08/25/24 10:00 53 L 20 146/60 H 93 08/25/24 09:33 50 L 18 125/61 100 08/25/24 09:24 51 L 19 98 08/25/24 09:00 127/53 L 08/25/24 09:00 48 L 21 127/53 L 100 08/25/24 08:30 48 L 19 136/59 L 89 L 08/25/24 08:20 52 L 08/25/24 08:10 61 18 95 Room Air 08/25/24 08:01 148/68 H 08/25/24 07:51 37.2 C 61 18 154/74 H 95 Room Air Code Status & VTE Plan Code Status Full Code Supervising Physician Co-Signing Physician Notes I personally examined the patient and verified all yost points of history and exam, discussed case, and agree with decision making with Dr Carrillo abdominal pain. No urinary symptoms that are new other than retention. Has had this from time to time in the past. Seen at the same time the surgical teaminput greatly appreciated. Vitals noted, in general she is awake and alert pleasant no distress. HEENT normocephalic atraumatic mucous membranes moist. Abdomen is thin somewhat scaphoid, there is a palpable weakness in the fascia of her left inguinal canal, no bulge remains. No guarding rebound or rigidity. CT images and report reviewed. Small bowel obstructionrelated to inguinal herniahernia is reduced and bowel obstruction symptoms improved. Surgery has seen her and will proceed with hernia repair this admission to prevent recurrence. Urinary retentionfollow for any other symptoms of infection, but given that she has had prior urinary retention requiring straight cath, I suspect the abdominal pain and bowel obstruction may have simply led to some reflexive urinary retention. Smith cath for now, voiding trial post op. No specific need for antibiotics for this at this time. Otherwise as above. DVT proph SCDs for now, pharmacologic post op unless contraindications arise (1) Abdominal pain Abdominal location: generalized Qualified Code(s): R10.84 - Generalized abdominal pain
--- NOTE | 2024-08-25 13:09 | Electrocardiogram Report ---
Test Reason : Blood Pressure : */* mmHG Vent. Rate : 50 BPM Atrial Rate : 50 BPM P-R Int : 182 ms QRS Dur : 96 ms QT Int : 442 ms P-R-T Axes : -24 -11 -15 degrees QTcB Int : 402 ms Sinus bradycardia Inferior infarct , age undetermined Abnormal ECG No previous ECGs available Confirmed by John Adames ([id number]) on 08/25/2024 1:08:54 PM Referred By: REFERRED SELF Confirmed By: John Adames
[2024-08-25] MEDS: LACTATED RINGER'S 1,000 ML IV SCH (13:13)
--- NOTE | 2024-08-25 18:35 | Billing Data ---
Date of Service August 25, 2024 Coding Level of Care Code 69141 INT INP/OBS CARE
[2024-08-25] MEDS: busPIRone 5 MG TAB PO SCH (20:25)
[2024-08-25] MEDS: GABAPENTIN 600 MG TAB PO SCH (20:25)
[2024-08-25] MEDS: TAMSULOSIN HCL 0.4 MG CAP PO SCH (20:25)
[2024-08-25] MEDS: BRINZOLAMIDE (AZOPT) OPS 10 ML BTL OPB SCH (20:26)
[2024-08-25] MEDS: LATANOPROST 0.005% OP SOLN 2.5 ML BTL OPB SCH (20:26)
[2024-08-25] MEDS ORDERED: GABAPENTIN 600 MG TAB PO SCH (21:00)
[2024-08-26 06:39] LABS: Hematocrit (blood only) 29.9 % (37.0-47.0); Hemoglobin 10.1 g/dl (12.0-16.0); Mean Corpuscular Hemoglobin 31.7 pg (25.0-34.0); Mean Corpuscular Volume 93.7 fL (80.0-100.0); Platelet Count 147 K/uL (130-400); RDW Standard Deviation 43.3 fL (36.4-46.3); Red Blood Count 3.19 M/uL (4.20-5.40); White Blood Count 6.48 K/ul (4.8-10.8)
[2024-08-26 07:21] LABS: Anion Gap 6.0 (3-11); Blood Urea Nitrogen 21.0 mg/dl (6-23); Calcium 8.0 mg/dl (8.6-10.3); Carbon Dioxide 28.0 mmol/L (21-32); Chloride 108.0 mmol/L (98-107); Creatinine Clr Calc Pharmacy 50.0 ml/min; Glucose 87.0 mg/dl (70-99(Fasting)); Potassium 3.8 mmol/L (3.5-5.1); Sodium 142.0 mmol/L (136-145)
--- NOTE | 2024-08-26 07:47 | Surgery Progress Note ---
Date of Service August 26, 2024 Assessment & Plan (1) Reducible left inguinal hernia: Plan: abd soft TTP LLQ VSS Keep npo, IV fluids for hydration scheduled for robotic laparoscopic Left inguinal hernia repair with Dr Haile Galaviz Admission and Anticipated Discharge Date Admission Date: August 25, 2024 Supervising Physician Co-Signing Physician Notes I have seen and examined this patient this am with her . We have discussed a robotic approach with the possibility of needing to open and/or resect bowel if needed. The details of the procedure were discussed including the risks, benefits and alternatives with her present. Subjective pt reports feeling better than yesterday still with some abdominal discomfort denies flatus Review of Systems Constitutional: no fever and no chills Respiratory: no dyspnea Cardiovascular: no chest pain Gastrointestinal: + abdominal pain; no nausea and no vomit ing Physical Exam Constitutional: cooperative; no acute distress Respiratory: normal respiratory effort and able to speak in complete sentences; no respiratory distress Gastrointestinal (Abdomen): Inspection/Auscultation: abdomen normal to inspection and + visible herniation (LIH); abdomen not distended Percussion/Palpation: + abdomen tender and abdomen soft Psychiatric: A+Ox3, euthymic affect Results & Data Vital Signs (Past 12 Hours) Vital Signs Temp Pulse Resp BP Pulse Ox O2 Del Method O2 Flow Rate 08/26/24 07:31 98.6 F 62 16 114/51 L 95 Nasal Cannula 08/25/24 22:14 Nasal Cannula 2 PG Care Time/CCT Total # of Minutes Spent Total Time Spent with Patient: Total time spent is greater than 50% in coordination of care (as documented) at patient's floor/unit and/or counseling patient: Coding Level of Care Code 38937 SUB INP/OBS CARE 03/08MIN Diagnoses Reducible left inguinal hernia K40.90
[2024-08-26] MEDS: LOSARTAN POTASSIUM 25 MG TAB PO SCH (08:10)
[2024-08-26] MEDS: SERTRALINE HCL 100 MG TABLET PO SCH (08:10)
--- NOTE | 2024-08-26 08:59 | Hospitalist Progress Note ---
Date of Service August 26, 2024 Assessment & Plan (1) Abdominal pain: (2) SBO (small bowel obstruction): Plan Pt is a 84 yo female with hx of a L1-L3 vertebral compression fracture and urinary retention presenting with SBO caused by left inguinal hernia which was manual reduced in the ED yesterday. Pain controlled with IV morphine and currently awaiting surgical intervention. #SBO/ Left inguinal hernia -CT abd. showed bladder distension and SBO from a left inguinal hernia which was manually reduced on admission. Pt's vitals are stable, she is afebrile and WBC is WNL. -General surgery scheduled for Left hernia repair today -Continue IV morphine for pain control -Continue LR fluids -NPO #Vertebral fracture -CT spine showed compression L1-L3 fractures, likely due to osteoporosis -Most recent DEXA scan was normal - likely low sensitivity. -Recommend starting bisphosphonate 1 month after fracture heals -Continue IV morphine for pain control -Consider intranasal calcitonin if pain continues to worsen #Urinary retention/UTI -Smith catheter in place -Urinalysis showed elevated leukocyte esterase, RBC, WBC and bacteria -Asymptomatic - antibiotics not recommended -Consider ordering bladder scan to check post void volume #Abnormal BUN/CR -BUN/Cr increased from 27-> 31.3 -Continue IV fluids Dispo: Med/surg Diet: NPO DVT prophylaxis: SCDs Code: Full Admission and Anticipated Discharge Date Admission Date: August 25, 2024 Supervising Physician Co-Signing Physician Notes I personally examined the patient and verified all yost points of history and exam, discussed case, and agree with decision making with Dr Carrillo seen postop feeling okay. No current complaints. Nursing notes no problems. Vitals noted, in general she is awake and alert fatigued but no distress. HEENT normocephalic atraumatic mucous membranes moist. Breathing unlabored no accessory muscle use good effort. Skin without rashes pallor or icterus. Neuro without focal deficits. Small bowel obstructionrelated to inguinal hernia Status post surgical repair. Advance diet, hopefully home tomorrow Urinary retentionfollow for any other symptoms of infection, but given that she has had prior urinary retention requiring straight cath, I suspect the abdominal pain and bowel obstruction may have simply led to some reflexive urinary retention. Smith cath for now, voiding trial post op (given that she is still fatigued and it is reasonably late in the day, probably tomorrow morning). No specific need for antibiotics for this at this time. age-related osteoporosis with current pathologic fracture of vertebraeshe had a DEXA scan just earlier this year that was read as normal, I wonder if it was not just an unlucky reading due to arthritis falsely amplifying her bone density. Currently on calcium and vitamin D, would anticipate starting a bisphosphonate in about a month. Otherwise as above. DVT proph SCDs for now, start lovenox in AM Subjective Pt is a 84 yo female with hx of a L1-L3 vertebral compression fracture and urinary retention presenting with SBO caused by left inguinal hernia which was manual reduced in the ED yesterday. Reports having more lower abdominal pain and back pain overnight. Unable to pass gas. Pt does not remember passing stool but noted that the nurse noticed some last night. NPO overnight. Smith catheter in place. No fever, chills, n/v, chest pain, SOB, dysuria, hematuria. Review of Systems Review of Systems: As per HPI Physical Exam Physical Exam: HEENT: moist mucous membranes CV: Normal r/r, S1, S2 with radiation to the left carotid, no r/m/g, distal pulses 2+ b/l, no LE edema Lungs: CTA b/l, no wheezing, symmetrical chest wall expansion b/l Abd: hypoactive bs, soft and non distended, tenderness to palpation in the lower and central abd, no guarding or rebound tenderness, no palpable herniation of bowel Back: Spinal and radiating paraspinal tenderness in the lower back, no CVA tenderness Extremity bruising in UE and LE b/l Results & Data Results & Data Vital Signs (Past 12 Hours) Vital Signs Temp Pulse Resp BP Pulse Ox O2 Del Method O2 Flow Rate 08/26/24 07:31 37.0 C 62 16 114/51 L 95 Nasal Cannula 08/25/24 22:14 Nasal Cannula 2 Laboratory Results RBC 3.19 Hgb 10.1 Hct 29.9 Cl- 108 BUN/Cr 31.3 Ca2+ 8 (1) Abdominal pain Abdominal location: generalized Qualified Code(s): R10.84 - Generalized abdominal pain
[2024-08-26] MEDS ORDERED: GABAPENTIN 300 MG CAP PO SCH (09:00)
[2024-08-26] MEDS: ACETAMINOPHEN 1,000 MG/100 ML VIAL IV STA (09:28)
[2024-08-26] MEDS ORDERED: DEXAMETHASONE SOD INJ 4 MG/ML VIAL ONE (09:54)
[2024-08-26] MEDS ORDERED: PROPOFOL IV EMULSION 10 MG/ML 20 ML VIAL IV ONE (09:54)
[2024-08-26] MEDS ORDERED: ROCURONIUM BROMIDE 10 MG/ML 5 ML VIAL IV ONE (09:54)
[2024-08-26] MEDS ORDERED: ONDANSETRON INJ 2 MG/ML 2 ML VIAL ONE (09:54)
[2024-08-26] MEDS: LACTATED RINGER'S 1,000 ML IV SCH (11:31)
[2024-08-26] MEDS ORDERED: SUCCINYLCHOLINE CHLORIDE 20 MG/ML 10 ML VIAL IV ONE (11:49)
[2024-08-26] MEDS ORDERED: CISATRACURIUM BESYLATE IV SOLN 2 MG/ML 10 ML VIAL IV ONE (11:49)
--- NOTE | 2024-08-26 12:07 | Anesthesiology Consultation ---
Date of Service August 26, 2024 Assessment & Plan Chart Review Chart Review: Acceptable Risk for Surgery and Patient NOT seen in Pre Admission Testing Consults Requested none ASA ASA4 Proposed Anesthesia Anesthesia Type: General Anesthesia Line Insertion: Arterial line Risk / Benefits Reviewed With: PT / POA / Parent / Guardian, Accepts Plan and Informed Consent Obtained History Surgery Operation Date: 08/26/24 12:00 Proposed Procedures p Robotic Laparoscopic Left Inguinal Hernia Repair - Glenda Rosario, Height/Weight Height: 5 ft 5 in Weight: 52.5 kg Allergies Allergy/AdvReac Type Severity Reaction Status Date / Time No Known Allergies Allergy Verified 08/25/24 09:53 Medications Home Medications Medication Instructions Recorded Confirmed Last Taken magnesium 250 mg tablet 250 mg PO QAM 07/11/23 08/25/24 08/24/24 mecobalamin (vitamin B12) 500 mcg 500 mcg PO QAM 07/11/23 08/25/24 08/24/24 chewable tablet multivitamin 1 tab PO QAM 07/11/23 08/25/24 08/24/24 brinzolamide 1 % eye 1 drp ophthalmic (eye) BID 10/03/23 08/25/24 08/24/24 drops,suspension (Azopt) latanoprost 0.005 % eye drops 1 drp ophthalmic (eye) HS 10/03/23 08/25/24 08/24/24 loperamide 2 mg capsule 2 mg PO Q6H PRN Diarrhea 11/15/23 08/25/24 08/24/24 gabapentin 600 mg tablet 600 mg PO QPM #90 tabs 03/18/24 08/25/24 08/24/24 gabapentin 300 mg capsule 600 mg (2 x 300 mg) PO QAM #180 06/10/24 08/25/24 08/24/24 caps sertraline 50 mg tablet 100 mg PO QAM 06/24/24 08/25/24 08/24/24 buspirone 10 mg tablet 10 mg PO BID #180 tabs 06/30/24 08/25/24 08/24/24 aspirin 81 mg tablet 81 mg PO QAM 08/04/24 08/25/24 08/24/24 calcium 600 mg (as 1 tab PO BID 08/04/24 08/25/24 08/24/24 carbonate)-vitamin D3 10 mcg (400 unit) tablet (Calcium 600 + D(3)) losartan 25 mg tablet 25 mg PO QAM 08/04/24 08/25/24 08/24/24 tamsulosin 0.4 mg capsule 0.4 mg PO HS 08/04/24 08/25/24 08/24/24 turmeric root extract 500 mg tablet 500 mg PO BID 08/04/24 08/25/24 08/24/24 oxycodone-acetaminophen 2.5 mg-325 1 tab PO Q8H PRN pain #20 tabs 08/08/24 08/25/24 08/24/24 mg tablet Active Medications Generic Name Dose Route Start Last Admin Trade Name Freq PRN Reason Stop Dose Admin Brinzolamide 1 drops 08/25/24 21:00 08/26/24 09:13 Brinzolamide (Azopt) Ops 10 Ml Btl OPB 09/24/24 20:59 Not Given BID TAYLA Buspirone HCl 10 mg 08/25/24 21:00 08/26/24 08:09 Buspirone 5 Mg Tab PO 09/24/24 20:59 10 mg BID TAYLA Administration Gabapentin 600 mg 08/25/24 21:00 08/26/24 08:10 Gabapentin 600 Mg Tab PO 09/24/24 20:59 600 mg BID TAYLA Administration Lactated Ringer's 1,000 mls @ 15 mls/hr 08/26/24 11:30 08/26/24 11:31 Lr IV 08/29/24 11:29 15 mls/hr .Q24H TAYLA Administration Latanoprost 1 drops 08/25/24 21:00 08/25/24 20:26 Latanoprost 0.005% Op Soln 2.5 Ml Btl OPB 09/24/24 20:59 1 drops HS TAYLA Administration Losartan Potassium 25 mg 08/26/24 09:00 08/26/24 08:10 Losartan Potassium 25 Mg Tab PO 09/25/24 08:59 25 mg QAM TAYLA Administration Sertraline HCl 100 mg 08/26/24 09:00 08/26/24 08:10 Sertraline Hcl 100 Mg Tablet PO 09/25/24 08:59 100 mg QAM TAYLA Administration Tamsulosin HCl 0.4 mg 08/25/24 21:00 08/25/24 20:25 Tamsulosin Hcl 0.4 Mg Cap PO 09/24/24 20:59 0.4 mg HS TAYLA Administration NPO Date Last Intake of Fluids: 08/26/24 Time Last Intake of Fluids: 08:00 Date Last Intake of Solids: 08/24/24 Time Last Intake of Solids: 11:00 Past Medical History Medical History Dysphagia Aspiration into airway History of Clostridioides difficile colitis Self-catheterizes urinary bladder hx--pt states stopped self cathing 9 months ago--taking tamulosin and doing well History of colon polyps x1 small History of skin cancer multiple removed. [place] (hard of hearing) Abnormal brain CT "a lot of white stuff" - 2022. Told to take baby aspirin and is high risk for stroke. Anxiety Exercise / Class Metabolic Activity III < 4 Walking/Shop/Light housework Past Family History Family History Grandmother (Maternal) Breast cancer Sister Diabetes Breast cancer Colorectal cancer Mother Diabetes Heart disease Myocardial infarction Colorectal cancer Hypertension Father Heart disease Hypertension Brother Prostate cancer Hypertension Sister Hypertension Other No family history of adverse response to anesthesia Denies family history of Ovarian cancer Kidney disease Lung cancer COPD (chronic obstructive pulmonary disease) Stroke Past Surgical History Surgical History History of biopsy tongue History of colonoscopy Past Anesthesia History No Hx of Anesthesia Complications and No Family Hx of Anesthesia Complications History of PONV No Hx of PONV and No Hx of Motion Sickness Social History Smoking Status: Former smoker Do You Dip or Chew Tobacco: No Hx Alcohol Use: No Hx Substance Use: No substance use type: does not use Physical Exam Vital Signs Last Vital Signs Temp 36.9 C 08/26/24 11:18 Pulse 50 L 08/26/24 11:18 Resp 16 08/26/24 11:18 BP 120/46 L 08/26/24 11:18 Pulse Ox 94 08/26/24 11:18 O2 Del Method Nasal Cannula 08/26/24 11:18 O2 Flow Rate 2 08/26/24 11:18 Constitutional + cachectic; no acute distress ENMT Mouth: + dentition abnormality, + dentures, + poor dentition and + small oral opening Thyromental Distance: < 3.5 Finger Breadths Mallampati Class: II Neck normal visual inspection and trachea midline; neck extension not limited Respiratory normal respiratory effort Auscultation: + diminished lung sounds Cardiovascular Rate/Rhythm: regular rate and regular rhythm Heart Sounds: no murmur Vessels: no carotid bruit Musculoskeletal Spine: + lumbar spinal tenderness (L 1-3 compression Fx's); normal cervical ROM and no pain with cervical ROM Extremities: extremities normal to inspection; full ROM of extremities Neurologic moves all extremities Motor/Sensory: no sensory deficit Psychiatric Orientation: alert and oriented x 3 Testing Laboratory Results 08/26/24 06:03 08/26/24 06:03 Urine Color Yellow 08/25/24 09:45 Urine Appearance Clear (Clear) 08/25/24 09:45 Urine pH 6.0 (4.5-7.5) 08/25/24 09:45 Ur Specific [place] 1.026 (1.000-1.030) 08/25/24 09:45 Urine Protein Negative (Negative) 08/25/24 09:45 Urine Glucose (UA) Negative (Negative) 08/25/24 09:45 Urine Ketones 1+ (Negative) H 08/25/24 09:45 Urine Nitrite Negative (Negative) 08/25/24 09:45 Ur Leukocyte Esterase 2+ (Negative) H 08/25/24 09:45 Urine WBC (Auto) 11-20 /hpf (0-5) H 08/25/24 09:45 Urine RBC (Auto) 3-5 /hpf (0-2) H 08/25/24 09:45 U Hyaline Cast (Auto) 0-2 /lpf (0-2) 08/25/24 09:45 U Epithel Cells (Auto) 0-2 /hpf (0-2) 08/25/24 09:45 Urine Bacteria (Auto) 4+ (None Seen) H 08/25/24 09:45 Electrocardiogram Date: 08/25/24 Findings: + SB @ (@ 50;? infer. infarct, age ?)
[2024-08-26] MEDS ORDERED: MIDAZOLAM HCL 1 MG/ML 2ML VIAL ONE (12:27)
[2024-08-26] MEDS ORDERED: GLYCOPYRROLATE 0.2 MG/ML VIAL ONE ×2 (13:19→13:22)
[2024-08-26] MEDS ORDERED: ePHEDrine sulfate 50 MG/5 ML SYR ONE (13:24)
[2024-08-26] MEDS ORDERED: PHENYLEPHRINE 100MCG/ML 5ML SYR ONE (13:24)
[2024-08-26] MEDS ORDERED: SUGAMMADEX SODIUM 200 MG/2 ML VIAL IV ONE (13:32)
[2024-08-26] MEDS: BUPIVACAINE 0.5 % 5 MG/1 ML MPF 30ML VIAL ONE (15:07)
--- NOTE | 2024-08-26 15:12 | Operative Report ---
PG Post Operative Report Pre & Post Diagnosis Operation Date: 08/26/24 12:00 Pre-Op Diagnosis: Reducible Left Inguinal Hernia Post-Op Diagnosis: Reducible Left Inguinal Hernia I identified the patient and participated in the time-out.: Yes Procedure Operation Date: 08/26/24 12:00 Actual Procedures p Robotic Laparoscopic Left Inguinal Hernia Repair(Left) - Glenda Galaviz DO Surgeon Glenda Rosario DO [employer] Judge SALIMA Jaeger Estimated Blood Loss 7 Findings See Below Obturator hernia, direct inguinal hernia and indirect inguinal hernia or containing preperitoneal fat. Specimens None Drains None Anesthesia Type General Complications No immediate complications Indications Presented to the ED with left inguinal hernia and bowel obstructive symptoms. Hernia was reducible. Patient opted for repair during this admission. Description of Procedure The patient was brought back to the operating room and placed on the operating table in supine position. She was connected to cardiac and oxygen monitoring, supplemental O2 was provided and SCDs were applied to bilateral lower extremities. The patient was administered general anesthesia and a secure airway was established. A Smith catheter was inserted. The abdomen was prepped and draped in typical sterile fashion a timeout was conducted. Local anesthetic was used to anesthetize the skin and subcutaneous tissues prior to making the incisions and all incisions were made with an 11 blade. Intra-abdominal access was gained at the supraumbilical fold using a Veress needle and this was confirmed with a saline drop test. An 8 mm robotic port was introduced using direct visualization with a 5 mm laparoscope in an Optiview port. The intra- abdominal contents were examined. There was no bowel injury, no compromised bowel no evidence for bowel obstruction at this time. There is a significant left inguinal hernia noted that appeared to be direct on initial view. 2 additional 8 mm robotic trocars were inserted at the upper right and upper left quadrants. The OR table was positioned in Trendelenburg and the robot was deployed, docked, instruments loaded and targeted. At the console, the preperitoneal space was entered and developed from Marciano's ligament medially to the ASIS laterally. A significant direct inguinal hernia was noted containing peritoneum. This was reduced. This was difficult to reduced as the hernia itself was very small and contained a very large lipoma and peritoneum. There was a small amount of bleeding through the overall dissection and was controlled with gentle cautery and most bleeding subsided on its own. Upon reducing the peritoneum, an additional obturator hernia was identified as well as an indirect inguinal hernia. Both of these hernias were completely reduced. The myopectineal orifice appeared to be free of any herniating preperitoneal fat at that time and the peritoneum had been fully reduced well enough to create a good cavity for the mesh. The peritoneum was closed using a V-Loc suture. A small tear in the peritoneum was repaired using 3-0 Vicryl suture. The needles were both removed. The robot was undocked and cleared from the patient. The OR table was returned to neutral position. Skin incisions were closed using 4-0 Monocryl suture. The abdomen was wiped clean with a saline soaked lap pad and dried. The incisions were further sealed with Dermabond. The OR table was returned to the neutral position. The Smith catheter was removed. Anesthesia was discontinued and the secure airway was removed. The patient tolerated the procedure well she was transferred recovery in stable condition. I attest to the content of the Intraoperative Record and any orders documented therein. Any exceptions are noted below.
--- NOTE | 2024-08-26 16:18 | Anesthesiology Progress Note ---
Date of Service August 26, 2024 Anesthesia Post Procedure Vital Signs Vital Signs: Temp Pulse Pulse Resp BP Pulse Ox O2 Del Method 08/26/24 16:10 36.4 C L 56 L 19 107/41 L 95 Room Air 08/26/24 16:00 57 L 13 117/48 L 93 Room Air 08/26/24 15:50 58 L 12 116/55 L 96 Room Air 08/26/24 15:40 55 L 14 120/47 L 100 Oxymask 08/26/24 15:30 61 15 115/47 L 100 Oxymask 08/26/24 15:24 36.2 C L 66 12 115/46 L 96 Oxymask 08/26/24 11:18 36.9 C 50 L 16 120/46 L 94 Nasal Cannula 08/26/24 08:00 Nasal Cannula 08/26/24 07:31 37.0 C 62 16 114/51 L 95 Nasal Cannula 08/25/24 22:14 Nasal Cannula 08/25/24 19:25 36.8 C 51 L 18 115/55 L 97 Nasal Cannula O2 Flow Rate 08/26/24 16:10 08/26/24 16:00 08/26/24 15:50 08/26/24 15:40 3 08/26/24 15:30 6 08/26/24 15:24 6 08/26/24 11:18 2 08/26/24 08:00 2 08/26/24 07:31 08/25/24 22:14 2 08/25/24 19:25 2 Transfer of Care Handoff Completed per policy Notes Mental Status: alert / awake / arousable and participated in evaluation Patient Amnestic to Procedure: Yes Nausea / Vomiting: adequately controlled Pain: adequately controlled Airway Patency, RR, SpO2: stable & adequate BP & HR: stable & adequate Hydration State: stable & adequate Anesthetic Complications: no major complications apparent and Pt Satisfied with anesthetic care
--- NOTE | 2024-08-26 18:44 | Billing Data ---
Date of Service August 26, 2024 Coding Level of Care Code 15291 SUB INP/OBS CARE
[2024-08-27 07:08] LABS: Hematocrit (blood only) 29.9 % (37.0-47.0); Hemoglobin 9.8 g/dl (12.0-16.0); Mean Corpuscular Hemoglobin 30.8 pg (25.0-34.0); Mean Corpuscular Volume 94.0 fL (80.0-100.0); Platelet Count 148 K/uL (130-400); RDW Standard Deviation 42.5 fL (36.4-46.3); Red Blood Count 3.18 M/uL (4.20-5.40); White Blood Count 7.10 K/ul (4.8-10.8)
[2024-08-27 07:27] LABS: Anion Gap 3.0 (3-11); Blood Urea Nitrogen 18.0 mg/dl (6-23); Calcium 7.8 mg/dl (8.6-10.3); Carbon Dioxide 30.0 mmol/L (21-32); Chloride 107.0 mmol/L (98-107); Creatinine Clr Calc Pharmacy 52.3 ml/min; Glucose 84.0 mg/dl (70-99(Fasting)); Potassium 3.8 mmol/L (3.5-5.1); Sodium 140.0 mmol/L (136-145)
--- NOTE | 2024-08-27 07:50 | Surgery Progress Note ---
<Statement entered by Glenda Rosario, DO - 08/27/24 15:18> I have seen and examined this patient this am. No flatus yet. Tolerating sips of clears so far. Date of Service August 27, 2024 Assessment & Plan (1) Reducible left inguinal hernia: Plan: POD 1 robotic lap Left inguinal hernia repair with Dr Rosario tolerating diet without n/v vss, surgical sites CDI remove jenkins catheter stable for d/c from surgical standpoint if pain controlled, can get OOB and void post catheter removal f/u op in office 2 weeks Admission and Anticipated Discharge Date Admission Date: August 25, 2024 Subjective pt report abd soreness denies n/v, no flatus, cp, or sob Review of Systems Constitutional: no fever and no chills Respiratory: no dyspnea Cardiovascular: no chest pain Gastrointestinal: + abdominal pain; no nausea and no vomit ing Psychiatric: no confusion Physical Exam Constitutional: cooperative and comfortable; no acute distress Respiratory: normal respiratory effort and able to speak in complete sentences; no respiratory distress Cardiovascular: Rate/Rhythm: regular rate Gastrointestinal (Abdomen): Inspection/Auscultation: + abdominal surgical incision (CDI no s/s infection noted ); abdomen not distended Percussion/Palpation: abdomen soft Psychiatric: A+Ox3, euthymic affect Genitourinary: jenkins cath Results & Data Vital Signs (Past 12 Hours) Vital Signs Temp Pulse Pulse Resp BP Pulse Ox O2 Del Method 08/27/24 07:15 98.2 F 60 16 127/60 97 Nasal Cannula 08/27/24 04:22 98.1 F 68 12 125/61 96 Room Air 08/26/24 22:59 98.1 F 53 L 16 101/52 L 96 Nasal Cannula 08/26/24 20:45 Nasal Cannula O2 Flow Rate 08/27/24 07:15 2 08/27/24 04:22 08/26/24 22:59 2 08/26/24 20:45 2 Results CBC w Diff Results: RBC 3.18 M/uL (4.20-5.40) L 08/27/24 WBC 7.10 K/ul (4.8-10.8) 08/27/24 Hgb 9.8 g/dl (12.0-16.0) L 08/27/24 Hct 29.9 % (37.0-47.0) L 08/27/24 MCV 94.0 fL (80.0-100.0) 08/27/24 MCH 30.8 pg (25.0-34.0) 08/27/24 MCHC 32.8 g/dL (32.0-36.0) 08/27/24 RDW Standard Deviation 42.5 fL (36.4-46.3) 08/27/24 RDW Coefficient of Variation 12.3 % (11.5-14.5) 08/27/24 Plt Count 148 K/uL (130-400) 08/27/24 MPV 9.6 fL (9.4-12.4) 08/27/24 Neutrophils (%) (Auto) 84.3 % 08/25/24 Lymphocytes (%) (Auto) 8.4 % 08/25/24 Monocytes # (Auto) 0.60 K/uL (0.11-0.59) H 08/25/24 Eosinophils # (Auto) 0.00 K/uL (0.00-0.50) 08/25/24 Immature Granulocyte % (Auto) 0.3 % 08/25/24 Neutrophils # (Auto) 7.27 K/uL (1.40-6.50) H 08/25/24 Lymphocytes # (Auto) 0.73 K/uL (1.20-3.40) L 08/25/24 Monocytes # (Auto) 0.60 K/uL (0.11-0.59) H 08/25/24 Eosinophils # (Auto) 0.00 K/uL (0.00-0.50) 08/25/24 Basophils # (Auto) 0.01 K/uL (0.00-0.20) 08/25/24 Immature Granulocyte # (Auto) 0.03 K/uL (0.01-0.20) 5 PG Care Time/CCT Total # of Minutes Spent Total Time Spent with Patient: Total time spent is greater than 50% in coordination of care (as documented) at patient's floor/unit and/or counseling patient: Coding Level of Care Code 43785 Post Operative Follow-Up Diagnoses Reducible left inguinal hernia K40.90
[2024-08-27] MEDS: ENOXAPARIN INJ 40 MG/0.4 ML SYR SQ SCH (08:22)
--- NOTE | 2024-08-27 09:32 | Hospitalist Progress Note ---
Date of Service August 27, 2024 Assessment & Plan (1) Abdominal pain: (2) SBO (small bowel obstruction): Plan Pt is a 84 yo female with hx of a L1-L3 vertebral compression fracture and urinary retention presenting with SBO caused by left inguinal hernia which was manual reduced in the ED. #SBO/ Left inguinal hernia -CT abd. showed bladder distension and SBO from a left inguinal hernia which was manually reduced on admission. -s/p left hernia repair today -Acetaminophen for pain control -Ok to resume normal diet #Vertebral fracture -CT spine showed compression L1-L3 fractures, likely due to osteoporosis -Most recent DEXA scan was normal - likely low sensitivity. -Currently on Vitamin C and D -Recommend starting bisphosphonate 1 month after fracture heals -Consult PT/OT to help with mobility #Urinary retention/UTI -d/c jenkins catheter -Order bladder scan to check post void volume -pt has not had measurable urine output after catheter removal. If bladder scan shows volume >600, consider straight cath. #Abnormal BUN/CR -BUN/Cr downtrending from 31.3 -> 28.1 -Increase fluid intake Dispo: Med/surg Diet: Normal diet DVT prophylaxis: SCDs Code: Full Admission and Anticipated Discharge Date Admission Date: August 25, 2024 Supervising Physician Co-Signing Physician Notes I personally examined the patient and verified all yost points of history and exam, discussed case, and agree with decision making with Dr Carrillo feeling ok overall. can't void though. notes that previously she had to straight cath for ~2yrs then was able to wean slowly- no overt root cause etiology seemed to be found. no sx reminiscent of prior UTIs to her. Vitals noted, in general she is awake and alert fatigued but no distress. HEENT normocephalic atraumatic mucous membranes moist. Breathing unlabored no accessory muscle use good effort. Skin without rashes pallor or icterus. Neuro without focal deficits. Small bowel obstructionrelated to inguinal hernia Status post surgical repair. stable for home in this respect Urinary retentionno clear symptoms of infection, but given that she has had prior urinary retention requiring straight cath, I suspect the abdominal pain and bowel obstruction may have simply led to some reflexive urinary retention. discussed options - jenkins, straight cath prn/home, follow inpatient and straight cath prn -- since she feels she might need rehab, following inpatient for now weakness - PT/OT eval and treat. may need rehab. age-related osteoporosis with current pathologic fracture of vertebraeshe had a DEXA scan just earlier this year that was read as normal, I wonder if it was not just an unlucky reading due to arthritis falsely amplifying her bone density. Currently on calcium and vitamin D, would anticipate starting a bisphosphonate in about a month. Otherwise as above. DVT proph SCDs, lovenox Subjective s/p left inguinal hernia repair. Reports feeling pain in the incision area and mild back pain on the lower back. Has not been able to stool since arriving to the ED. She is hungry. Jenkins catheter still in place. No fever, chills, SOB, chest pain, cough. Review of Systems Review of Systems: As per HPI Physical Exam Physical Exam: HEENT: moist mucous membranes CV: Normal r/r, S1, S2, no r/m/g, distal pulses 2+ b/l, no LE edema Lungs: CTA b/l, no wheezing, symmetrical chest wall expansion b/l Abd: Normal bs, soft and non distended, tenderness to palpation in LLQ, no guarding or rebound tenderness, no drainage and mild erythema on the incisional scar. Back: Spinal and radiating paraspinal tenderness in the lower back Results & Data Results & Data Vital Signs (Past 12 Hours) Vital Signs Temp Pulse Pulse Resp BP Pulse Ox O2 Del Method 08/27/24 07:15 36.8 C 60 16 127/60 97 Nasal Cannula 08/27/24 04:22 36.7 C 68 12 125/61 96 Room Air 08/26/24 22:59 36.7 C 53 L 16 101/52 L 96 Nasal Cannula O2 Flow Rate 08/27/24 07:15 2 08/27/24 04:22 08/26/24 22:59 2 (1) Abdominal pain Abdominal location: generalized Qualified Code(s): R10.84 - Generalized abdominal pain
[2024-08-27] MEDS: ACETAMINOPHEN 325 MG TAB PO PRN (10:05)
--- NOTE | 2024-08-27 16:43 | Billing Data ---
Date of Service August 27, 2024 Coding Level of Care Code 21761 SUB INP/OBS CARE 3MIN
[2024-08-28 07:14] LABS: Hematocrit (blood only) 30.2 % (37.0-47.0); Hemoglobin 10.2 g/dl (12.0-16.0); Mean Corpuscular Hemoglobin 31.6 pg (25.0-34.0); Mean Corpuscular Volume 93.5 fL (80.0-100.0); Platelet Count 153 K/uL (130-400); RDW Standard Deviation 42.5 fL (36.4-46.3); Red Blood Count 3.23 M/uL (4.20-5.40); White Blood Count 4.85 K/ul (4.8-10.8)
[2024-08-28 07:32] LABS: Anion Gap 3.0 (3-11); Blood Urea Nitrogen 17.0 mg/dl (6-23); Calcium 8.1 mg/dl (8.6-10.3); Carbon Dioxide 31.0 mmol/L (21-32); Chloride 108.0 mmol/L (98-107); Creatinine Clr Calc Pharmacy 44.6 ml/min; Glucose 93.0 mg/dl (70-99(Fasting)); Potassium 4.1 mmol/L (3.5-5.1); Sodium 142.0 mmol/L (136-145)
--- NOTE | 2024-08-28 09:37 | Surgery Progress Note ---
Date of Service August 28, 2024 Assessment & Plan (1) Left inguinal hernia: Plan: POD [address] Rosario tolerating reg diet without n/v , +flatus no bm yet straight cathed overnight, was able to void this AM port sites with dermabond, umbilical area with dried blood do not pick at it may shower, no baths for 2 weeks stable for d/c from gen surg standpoint f/u office 2 weeks Admission and Anticipated Discharge Date Admission Date: August 25, 2024 Supervising Physician Co-Signing Physician Notes I have seen this patient this am, sitting up in the chair. Denies N/V mild abdominal post surgical soreness. Says she has been ambulating with PT. Tolerates regular diet. May discharge when medically stable. Subjective mild post surgical discomfort left inguinal area denies n/v , cp , sob was able to void on own this AM +flatus Review of Systems Constitutional: no fever and no chills Respiratory: no dyspnea Cardiovascular: no chest pain Gastrointestinal: + abdominal pain; no nausea and no vomit ing Psychiatric: no confusion Physical Exam Constitutional: cooperative and comfortable; no acute distress Respiratory: normal respiratory effort and able to speak in complete sentences; no respiratory distress Gastrointestinal (Abdomen): Inspection/Auscultation: + abdominal surgical incision (dermabond, dried blood to umbilical area); abdomen not distended Percussion/Palpation: abdomen soft Psychiatric: Orientation: oriented x 3 Results & Data Vital Signs (Past 12 Hours) Vital Signs Temp Pulse Resp BP Pulse Ox O2 Del Method 08/28/24 08:02 58 L 16 92 Room Air 08/28/24 07:42 98.4 F 50 L 18 135/64 92 Room Air 08/27/24 21:53 Room Air PG Care Time/CCT Total # of Minutes Spent Total Time Spent with Patient: Total time spent is greater than 50% in coordination of care (as documented) at patient's floor/unit and/or counseling patient: Coding Level of Care Code 61874 Post Operative Follow-Up Diagnoses Left inguinal hernia K40.90
--- NOTE | 2024-08-28 12:16 | Hospitalist Progress Note ---
Date of Service August 28, 2024 Assessment & Plan (1) Abdominal pain: (2) SBO (small bowel obstruction): Plan Pt is a 84 yo female with hx of a L1-L3 vertebral compression fracture and urinary retention presenting with SBO caused by left inguinal hernia which was manual reduced in the ED. #SBO/ Left inguinal hernia -CT abd. showed bladder distension and SBO from a left inguinal hernia which was manually reduced on admission. -s/p left hernia repair -Acetaminophen 650mg for pain control #Vertebral fracture -CT spine showed compression L1-L3 fractures, likely due to osteoporosis -Most recent DEXA scan was normal - likely low sensitivity. 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 Voided 275ml at 11am and post void was 340ml -Continue to monitor bladder output #Abnormal BUN/CR -BUN/Cr continues to downtrend from 31.3 -> 28.1 -> 22.7 Dispo: Med/surg Diet: Regular diet, easy to chew DVT prophylaxis: SCDs Code: Full Admission and Anticipated Discharge Date Admission Date: August 25, 2024 Supervising Physician Co-Signing Physician Notes I personally examined the patient and verified all yost points of history and exam, discussed case, and agree with decision making with Dr Carrillo overall doing better. Moving some gas although no bowel movements. Eating okay. Did really well with physical therapy and she now feels comfortable that she will be steady enough to go home once she is doing better, would prefer doing some outpatient therapy. Voiding is improvingshe still does have some urinary retention, but she is able to void more and is retaining less as the day progresses. Vitals noted, in general she is awake and alert fatigued but no distress. HEENT normocephalic atraumatic mucous membranes moist. Breathing unlabored no accessory muscle use good effort. Skin without rashes pallor or icterus. Neuro without focal deficits. Small bowel obstructionrelated to inguinal hernia Status post surgical repair. stable for home in this respect. Gentle MiraLAX as a bowel regimen Urinary retentionno clear symptoms of infection and culture showed corynebacterium, and given that she has had prior urinary retention requiring straight cath, I suspect the abdominal pain and bowel obstruction may have simply led to some reflexive urinary retention. she is showing progress, hopefully the need for straight cath will fade over the coming days weakness - PT/OT eval and treat. did surprisingly well age-related osteoporosis with current pathologic fracture of vertebraeshe had a DEXA scan just earlier this year that was read as normal, I wonder if it was not just an unlucky reading due to arthritis falsely amplifying her bone density. Currently on calcium and vitamin D, would anticipate starting a bisphosphonate in about a month. Otherwise as above. DVT proph SCDs, lovenox Subjective s/p day 2 left inguinal hernia repair. Reports slight abdominal (3/10) and lower back pain but was able to sleep well last night. Still unable to stool but has passed a little bit of gas. Was unable to urinate yesterday and was catheterized last night. Pt was able to urinate this morning without dysuria or hematuria. Feeling a little unsteady when walking around and has been using spirometer. Would like to regain more mobility. Review of Systems Review of Systems: As per HPI Physical Exam Physical Exam: HEENT: moist mucous membranes CV: Normal r/r, S1, S2, no r/m/g, no LE edema Lungs: CTA b/l, no wheezing, symmetrical chest wall expansion b/l Abd: Normal bs, soft and non distended, tenderness to palpation in LLQ, no guarding or rebound tenderness, no drainage and mild erythema on the incisional scar. Back: Mild Spinal and radiating paraspinal tenderness in the lower back Results & Data Results & Data Vital Signs (Past 12 Hours) Vital Signs Temp Pulse Resp BP Pulse Ox O2 Del Method 08/28/24 08:02 58 L 16 92 Room Air 08/28/24 07:42 36.9 C 50 L 18 135/64 92 Room Air 08/27/24 21:53 Room Air (1) Abdominal pain Abdominal location: generalized Qualified Code(s): R10.84 - Generalized abdominal pain
[2024-08-28] MEDS: POLYETHYLENE (MIRALAX) 17 GM PACK PO SCH (15:32)
--- NOTE | 2024-08-28 19:38 | Billing Data ---
Date of Service August 28, 2024 Coding Level of Care Code 29511 SUB INP/OBS CARE MIN
[2024-08-29] MEDS: ASPIRIN 81 MG ECTAB PO SCH (11:27)
--- NOTE | 2024-08-29 12:25 | Hospitalist Progress Note ---
Date of Service August 29, 2024 Assessment & Plan (1) Abdominal pain: (2) SBO (small bowel obstruction): Plan Pt is a 84 yo female with hx of a L1-L3 vertebral compression fracture and urinary retention presenting with SBO caused by left inguinal hernia which was manual reduced in the ED. S/p surgical repair. Since surgery and jenkins catheter removal, pt has had some urinary retention and feeling of constipation. #SBO/ Left inguinal hernia -CT abd. showed bladder distension and SBO from a left inguinal hernia which was manually reduced on admission. -s/p left hernia repair -Acetaminophen 650mg for pain control #Vertebral fracture -CT spine showed compression L1-L3 fractures, likely due to osteoporosis -Most recent DEXA scan was normal - likely low sensitivity. -Currently on Vitamin C and D -Recommend starting bisphosphonate 1 month after fracture heals -Consulted PT/OT: Saw patient this morning, awaiting recommendations #Urinary retention/UTI -Continues with some post void volumes between 150-250mL -Continue to monitor bladder output, bladder scans prn #Constipation Pt with likely chronic constipation as well as bowel hypomobility due to post surgical status. No significant abdominal pain. Pt has flatus. - Trial of 34g miralax - Start 17g qam for soft stools #Abnormal BUN/CR -BUN/Cr continues to downtrend from 31.3 -> 28.1 -> 22.7 Dispo: Med/surg Diet: Regular diet, easy to chew DVT prophylaxis: SCDs Code: Full Admission and Anticipated Discharge Date Admission Date: August 25, 2024 Supervising Physician Co-Signing Physician Notes I personally examined the patient and verified all yost points of history and exam, discussed case, and agree with decision making with Dr Carrillo Continuing to walk okay. No bowel movement yet but also not a lot of significant abdominal symptoms. In discussion, she runs chronically constipated at home frequently her bowel movements are small pellets, she frequently has bowel movements after meals. She is worried about having an accident on the way home. Still has not needed a straight cath, although she notes her last postvoid residual was a little bit higher than previous. Vitals noted, in general she is awake and alert fatigued but no distress. HEENT normocephalic atraumatic mucous membranes moist. Breathing unlabored no accessory muscle use good effort. Skin without rashes pallor or icterus. Neuro without focal deficits. Small bowel obstructionrelated to inguinal hernia Status post surgical repair. stable for home in this respect. 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 For the last year or so she has had a constipated pattern in her bowel habits, and likely would benefit from some degree of a mild bowel regimenin relationship to going home, discussed that oftentimes the stress of being in the hospital will prolong constipation, and while her concern about having an accident on the ride home is valid, given that most people's constipation does not wake up suddenly and abruptly it seems low probability). Given her high concern about the situation, MiraLAX 34 g now, discussed this is really more still just moderate stool softener dosing, hopefully home tomorrow. Urinary retentionno clear symptoms of infection and culture showed corynebacterium, and given that she has had prior urinary retention requiring straight cath, I suspect the abdominal pain and bowel obstruction may have simply led to some reflexive urinary retention. she is showing progress, Overall seems safe for home in this regard with ongoing vigilance weakness - PT/OT eval and treat. did surprisingly well, discussed with patient that I understand her reticence to go home, but at the same time right now she is strong enough to be able to go back home, and often the longer people are in the hospital to more deconditioned they getthis makes me more concerned about keeping her for a prolonged time. She understands this risk/benefit balance. age-related osteoporosis with current pathologic fracture of vertebraeshe had a DEXA scan just earlier this year that was read as normal, I wonder if it was not just an unlucky reading due to arthritis falsely amplifying her bone density. Currently on calcium and vitamin D, would anticipate starting a bisphosphonate in about a month. Otherwise as above. DVT proph SCDs, lovenox Hopefully home tomorrow. Subjective Pt reports overall she is feeling better, but is feeling constipated. She declined the prn miralax that was ordered for her yesterday due to history of having diarrhea after taking miralax. Pt has some low back pain at compression fracture sites, but it has been controlled with PO tylenol. She feels her stamina is also still lower than prior to her admission. Denies CP, SOB, abdominal, N/V/D, dizziness. Review of Systems Review of Systems: As per HPI Physical Exam Physical Exam: HEENT: moist mucous membranes CV: Normal r/r, S1, S2 with radiation to the left carotid, no r/m/g, distal pulses 2+ b/l, no LE edema Lungs: CTA b/l, no wheezing, symmetrical chest wall expansion b/l Abd: normoactive bs, soft and non distended, tenderness to palpation in the lower and central abd, no guarding or rebound tenderness, no palpable herniation of bowel. Incisions are clean, dry and well approximated Back: Spinal and radiating paraspinal tenderness in the lower back, no CVA tenderness Extremity bruising in UE and LE b/l Results & Data Results & Data Vital Signs (Past 12 Hours) Vital Signs Temp Pulse Resp BP Pulse Ox O2 Del Method 08/29/24 12:11 36.8 C 54 L 12 110/60 98 Room Air 08/29/24 07:56 36.8 C 60 12 134/70 94 Room Air Resident Activity Tracking Resident Involvement: Resident Care Provided Care Provided: Adult Hospital Medicine (1) Abdominal pain Abdominal location: generalized Qualified Code(s): R10.84 - Generalized abdominal pain
[2024-08-29] MEDS: POLYETHYLENE (MIRALAX) 17 GM PACK PO SCH (12:32)
--- NOTE | 2024-08-29 13:21 | Billing Data ---
Date of Service August 29, 2024 Coding Level of Care Code 32691 SUB INP/OBS CARE
[2024-08-29 19:46] VITALS: TEMP 98.4
[2024-08-30 08:42] VITALS: BP 117/58; PULSE 58; RESP 16; O2SAT 98
--- NOTE | 2024-08-30 09:04 | Hospitalist Progress Note ---
Date of Service August 30, 2024 Assessment & Plan (1) Abdominal pain: (2) SBO (small bowel obstruction): Plan Pt is a 84 yo female with hx of a L1-L3 vertebral compression fracture and urinary retention presenting with SBO caused by left inguinal hernia which was manual reduced in the ED. #SBO/ Left inguinal hernia -CT abd. showed bladder distension and SBO from a left inguinal hernia which was manually reduced on admission. -s/p left hernia repair -Acetaminophen 650mg for pain control #Vertebral fracture -CT spine showed compression L1-L3 fractures, likely due to osteoporosis -Most recent DEXA scan was normal - likely low sensitivity. 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 Voided 275ml at 11am and post void was 340ml -Continue to monitor bladder output #Abnormal BUN/CR -BUN/Cr continues to downtrend from 31.3 -> 28.1 -> 22.7 Dispo: Med/surg Diet: Regular diet, easy to chew DVT prophylaxis: SCDs Code: Full Admission and Anticipated Discharge Date Admission Date: August 25, 2024 Results & Data Results & Data Vital Signs (Past 12 Hours) Vital Signs Temp Pulse Resp BP Pulse Ox O2 Del Method 08/30/24 08:41 36.9 C 58 L 16 117/58 L 98 Room Air 08/30/24 07:21 Room Air PG Care Time/CCT Total # of Minutes Spent Total Time Spent with Patient: Total time spent is greater than 50% in coordination of care (as documented) at patient's floor/unit and/or counseling patient: Coding Diagnoses Generalized abdominal pain R10.84 Abdominal location: generalized SBO (small bowel obstruction) K56.609 (1) Abdominal pain Abdominal location: generalized Qualified Code(s): R10.84 - Generalized abdominal pain
--- NOTE | 2024-08-30 12:40 | Discharge Summary ---
Discharge Summary Date of Service August 30, 2024 Principal Dx & Hospital Course #1 = Principal Diagnosis (1) Abdominal pain: (2) SBO (small bowel obstruction): Plan 84 yo F with PMHx of COPD, incomplete bladder emptying, inguinal hernia, microscopic colitis, CIDP, HTN, anxiety / depression, recent L1-L3 fractures presented to [facility] on 08/25/24 for the evaluation of 1-day hx of constant generalized abdominal pain with 2 episodes of vomiting. Her workup, including CT abd/pelvis revealed SBO caused by left inguinal hernia. Her hernia was manually reduced in the ED. She was evaluated by general surgery team. She then underwent Robotic Laparoscopic Left Inguinal Hernia Repair on 08/26/24. She tolerated surgery well. She is now tolerating diet and has had bowel movements. She had some urinary retention but is now voiding without difficulty. Pt is cleared from surgery standpoint to go home with follow up in 2 weeks. Given her history for L1-L3 compression fractures, she was evaluated by PT / OT and recommended home with home services. This has been set up by CM. Pt stated that she has a neurosurgery evaluation coming up in a week. #SBO - s/p lap left hernia repair - pt having BMs and tolerating diet - outpatient follow up with surgery team. #Urinary retention - currently resolved #Weakness - PT/OT recs appreciated - CM has set up home health #Age-related osteoporosis with current pathologic fracture - cont calcium and vitamin D - bisphosphonate once compression fracture heals - outpatient follow up with PCP #Dispo: pt discharged home with home services Admission HPI Per Admitting Provider HPI: Pt is a 84 yo female with hx of COPD, incomplete bladder emptying, microscopic colitis, chronic diarrhea, CIDP, HTN and anxiety/depression presenting with a 1 day history of generalized constant abdominal with 2 episodes of vomiting this morning. Reports a 1 year history of constipation and passes firm small balls once a day. She has a 2 year history of urinary retention where she was initially self catheterizing but is now on flomax due to recurrent UTIs. Most recent US for post void volume was <100mL. Pt also reported back pain due to a vertebral fracture after falling 3-4 weeks ago. Discharge Exam Gen: no acute distress, sitting in chair eating lunch HEENT: NC/AT Lungs: CTA CVS: RRR Abd: soft, active bowel sounds, NT/ND - no jenkins Ext: b/l trace ankle edema, no calf tenderness Neuro: AAOx3 Psych: calm Discharge Plan Discharge Items Patient Disposition: Home - Self-Care Reason For Visit: SBO Discharge Diagnosis: robotic left inguinal hernia repair Condition on Discharge: Fair Activity: Per Instructions section Lifting: No more than 10 pounds Bathing Comment: you can shower. No soaking in pools/bath for 2 weeks Exercise/Sports: Wait until after follow-up appointment Non-emergency contact: Surgeon Call non-emergency contact if: you have any medication questions, your symptoms worsen, your pain is not controlled, you have a fever, your temperature is above 101.5, your wound has increased redness, your wound has increased drainage and your wound pain has increased Follow-up/Referrals: Ronda Mchugh DO [Primary Care Provider] - Afua-Glenda Galaviz DO [Physician] - (call office for follow up in 2 weeks ) Diet: Regular Addtl Attending Provider Instructions: SPECIAL CARE INSTRUCTIONS: You may resume your Aspirin on Sunday08/29/24 * Dressing: You have surgical glue called dermabond on your surgical site incisions. You may shower with this on. This will tend to come off within a couple of weeks. Do not pick at it. * You may shower. NO soaking in pools or baths for 2 weeks * You may ice on and off alternating every 20 minutes as needed to help with pain and swelling over the next few days. * No lifting greater than 10lbs. No strenuous exercise until cleared by surgeon. Light walking is accepted. * No driving for 1 week or while taking narcotic pain medication * No drinking alcohol while taking narcotic pain medication * May use Ibuprofen/Tylenol over the counter for pain as tolerated. Do not exceed 3grams of Tylenol per 24 hours * Expect some swelling and bruising. * Diet- you may resume your regular diet Call your doctor if: * Temperature above 101 degrees, nausea/vomiting, fever/chills * Pain not relieved by pain medicine ordered * There is increased drainage or redness from any incision * You have any unanswered questions or concerns [phone]. FOLLOW UP VISIT: If not already scheduled, please call the office for a follow-up visit. Office Pending Studies at Discharge: No Stand-Alone Forms: My [facility], Smoking Cessation Medications and DC Order Prescriptions: New oxycodone-acetaminophen [Percocet] 2.5-325 mg tablet 1 tab PO BID PRN (Reason: pain) Qty: 10 0RF Continued gabapentin 600 mg tablet 600 mg PO QPM Qty: 90 3RF gabapentin 300 mg capsule 600 mg PO QAM Qty: 180 3RF buspirone 10 mg tablet 10 mg PO BID Qty: 180 2RF latanoprost 0.005 % drops 1 drp ophthalmic (eye) HS brinzolamide [Azopt] 1 % drops,suspension 1 drp ophthalmic (eye) BID mecobalamin (vitamin B12) 500 mcg tablet,chewable 500 mcg PO QAM multivitamin Tablet 1 tab PO QAM magnesium 250 mg tablet 250 mg PO QAM sertraline 50 mg tablet 100 mg PO QAM loperamide 2 mg capsule 2 mg PO Q6H PRN (Reason: Diarrhea) calcium carbonate-vitamin D3 [Calcium 600 + D(3)] 600 mg-10 mcg (400 unit) Tablet 1 tab PO BID turmeric root extract 500 mg Tablet 500 mg PO BID tamsulosin 0.4 mg capsule 0.4 mg PO HS losartan 25 mg tablet 25 mg PO QAM aspirin 81 mg Tablet 81 mg PO QAM Discontinued oxycodone-acetaminophen 2.5-325 mg tablet 1 tab PO Q8H PRN (Reason: pain) Qty: 20 0RF Discharge Orders: Discharge Order (Routine); Ordered 08/30/24 Ordered By: Heather Marrero Admission Data Admit Date/Time: 08/25/24 11:39 Attending Provider: Heather Marrero Admit Provider: Divine Carrillo Primary Care Provider: Ronda Mchugh Other Providers: Glenda Rosario; Divine Carrillo; [facility] Hospital Stay Data Consultations 08/25/24 10:09 Consult General Surgery Stat ED Decision to Admit Stat Procedures Performed Operation Date: 08/26/24 12:00 Actual Procedures p Robotic Laparoscopic Left Inguinal Hernia Repair(Left) - Glenda Galaviz DO Diagnostic Imagining Performed 08/25/24 08:10 CT abd pelvis IV con only Stat 08/25/24 08:14 CT lumbar spine w con Stat Pending Results Patient Have Any Pending Studies at Discharge: No Discharge Instructions Given to Patient (Per Discharging Provider) SPECIAL CARE INSTRUCTIONS: You may resume your Aspirin on Sunday08/29/24 * Dressing: You have surgical glue called dermabond on your surgical site incisions. You may shower with this on. This will tend to come off within a couple of weeks. Do not pick at it. * You may shower. NO soaking in pools or baths for 2 weeks * You may ice on and off alternating every 20 minutes as needed to help with pain and swelling over the next few days. * No lifting greater than 10lbs. No strenuous exercise until cleared by surgeon. Light walking is accepted. * No driving for 1 week or while taking narcotic pain medication * No drinking alcohol while taking narcotic pain medication * May use Ibuprofen/Tylenol over the counter for pain as tolerated. Do not exceed 3grams of Tylenol per 24 hours * Expect some swelling and bruising. * Diet- you may resume your regular diet Call your doctor if: * Temperature above 101 degrees, nausea/vomiting, fever/chills * Pain not relieved by pain medicine ordered * There is increased drainage or redness from any incision * You have any unanswered questions or concerns [phone]. FOLLOW UP VISIT: If not already scheduled, please call the office for a follow-up visit. Office Total Time Total Time Spent Total Time Spent (In Minutes): 45 mins Coding Level of Care Code 60902 INP/OBS DISCH >30 MIN Diagnoses Generalized abdominal pain R10.84 Abdominal location: generalized SBO (small bowel obstruction) K56.609
--- NOTE | 2024-09-02 13:16 | Coding Query ---
CODING QUERY To promote full compliance with coding requirements relating to patient care, provider participation is requested in all cases of hand wrapper operator uncertainty. Please assist us with the question(s) below: Coding Question(s): Pt adm with inguinal hernia with obstruction. The Operative report mentions repair of direct & indirect inguinal and obturator hernias. Within the Operative report you mentioned making room for the mesh. Can you check below the phrase that applies to the mesh? Thanks for your help! DOMINIQUE Taylor [facility] Physician's Response(s): ___X Mesh was used to repair the abdominal wall Mesh was not used to repair the abdominal wall Other: please specify: Principal Diagnosis: "that condition established after study, to be chiefly responsible for occasioning the admission of the patient to the hospital for care." Co-Existing Principal Diagnosis: "when two or more diagnoses equally meet the criteria for principal diagnosis as determined by the circumstances of admission, diagnostic work up, and/or therapy provided, and the Alphabetic Index, Tabular List, or another coding guideline does not provide sequencing direction, any one of the diagnoses may be sequenced first." "When the physician has documented what appears to be a current diagnosis in the body of the record, but has not included the diagnosis in the final diagnostic statement, the physician should be asked whether the diagnosis should be added." (Source Coding Clinic 2 QTR90. p3-4) EMILIO
== END 2024-08-30 15:49 | disposition home health service (06) | DRG 354 ==
LOC: ED 07:48 → EDINP 11:39 → SUATTDRO 11:39 → 3W 14:22